=== PATIENT | female | born 1945 | race Caucasian/White ===

== ENCOUNTER 2024-09-14 06:08 | Day surgery (SDC) | payer MEDICARE, OTHER, SELFPAY ==
[2024-09-14 06:09] VITALS: BP 141/71; PULSE 67; RESP 16; TEMP 36; O2SAT 99
[2024-09-14] MEDS: Tropicam./Phenyleph. (1/2.5%) 5 ML BTL OS ×3 (06:25→06:35)
--- NOTE | 2024-09-14 07:12 | W.ANESPRE ---
General Info Date of Service Date Performed: 09/14/24 Height: 5 ft 2 in Weight: 83.915 kg Body Mass Index (BMI): 33.8 Surgical Procedure: Operation Date: 09/14/24 07:40 Proposed Procedure Side Surgeon p Cataract Extraction with IOL Implant Left Willie Burks MD Meds Allergies and Home Medications Allergies Allergy/AdvReac Type Severity Reaction Status Date / Time niacin Allergy Other (See Verified 09/14/24 06:26 Comment) suture Allergy Other (See Verified 09/14/24 06:26 Comment) Home Medication ?Medication ?Instructions ?Recorded Manan Low Dose Aspirin 81 mg 81 mg PO DAILY 04/18/17 tablet,delayed release (aspirin) Nitrostat 0.4 mg sublingual tablet 0.4 mg sublingual DIRECTED 04/18/17 (nitroglycerin) Tylenol Extra Strength 500 mg 1,000 mg PO Q6H PRN 04/18/17 tablet (acetaminophen) hydrochlorothiazide 12.5 mg capsule 12.5 mg PO DAILY 04/18/17 levothyroxine 88 mcg tablet 88 mcg PO DAILY 04/18/17 lisinopril 40 mg tablet 40 mg PO DAILY 04/18/17 atorvastatin 80 mg tablet 80 mg PO DAILY 09/11/24 cholecalciferol (vitamin D3) 25 1,000 unit PO DAILY 09/11/24 mcg (1,000 unit) tablet (Vitamin D3) multivitamin 1 tab PO DAILY 09/11/24 Current Visit Medications: Current Medications Generic Name Dose Route Start Last Admin Trade Name Freq PRN Reason Stop Dose Admin Acetaminophen 1,000 mg 09/14/24 06:00 Acetaminophen 500 Mg Tab PO 10/14/24 05:59 Q4H PRN PRN Balanced Salt Solution 500 ml 09/14/24 06:00 Balanced Salt Soln.-Plus 500 Ml Bag OP 10/14/24 05:59 DIRECTED EVELYN Miscellaneous Medication 0 ml 09/14/24 06:00 Prednisolone 1%, Moxifloxacin 0.5%, Bromfenac 0.09% 5.6ml Btl OS 10/14/24 05:59 DIRECTED EVELYN Miscellaneous Medication 0 ml 09/14/24 06:00 09/14/24 06:35 Tropicam./Phenyleph. (1/2.5%) 5 Ml Btl OS 10/14/24 05:59 1 drp DIRECTED EVELYN Administration Tetracaine HCl 0 ml 09/14/24 06:00 Tetracaine 0.5% 4 Ml Btl OS 10/14/24 05:59 DIRECTED EVELYN PFSH Active Problems Active Problems: Problem Status Onset Code Posterior subcapsular age-related cataract of left eye Acute H25.042 Nuclear age-related cataract, left eye Acute H25.12 Medical History Medical History Osteopenia Spondyloschisis Hypertension Hypothyroidism Hypercholesterolemia Elevated LFTs Tubulovillous adenoma Papillary carcinoma Persistent headaches Surgical History Surgical History Fibroid, uterine uterine fibroidectomy History of bilateral tubal ligation S/P YONY (total abdominal hysterectomy) History of laminectomy L4-5, L5-S1 and medial facetectomies 2014 History of bunionectomy right foot History of biopsy tongue-hyperplasia, Labia- atypical nevus, History of colonoscopy History of endoscopy H/O thyroidectomy Excision, Lipoma Tobacco Smoking/Tobacco Use Status: Former Tobacco Use Alcohol Alcohol Intake: never Substance Use Substance use: Never Substance use type: does not use Vital Signs and Lab Results Vital Signs Most Recent Vital Signs in EMR: Most Recent Vital Signs Temp Pulse Resp BP Pulse Ox 36 C L 67 16 141/71 H 99 09/14/24 06:09 09/14/24 06:09 09/14/24 06:09 09/14/24 06:09 09/14/24 06:09 Lab Results Blood Type / Crossmatch: No Data to Display Complete Blood Count: No Data to Display Complete Metabolic Panel: No Data to Display Liver Function Panel: No Data to Display Coagulation Panel: No Data to Display Cardiac Panel: No Data to Display Arterial Blood Gas: No Data to Display Venous Blood Gas: No Data to Display Pancreas Panel: No Data to Display Thyroid Panel: No Data to Display Infectious Disease: No Data to Display Blood Cultures: No Data to Display Toxicology Panel: No Data to Display Anesthesia Assessment and Plan Anesthesia History Personal History: No History of Anesthesia Complications Family History: No Family History of Anesthesia Complications Exercise Tolerance Exercise Tolerance: Metabolic Equivalents>4 Pertinent Negatives Pertinent Negatives: No Symptoms of GERD Cardiac & Pulmonary Exam Cardiac Exam: Normal S1/S2 Heart Sounds Pulmonary Exam: Clear Bilateral Breath Sounds Implantable Cardiac Device Does patient have a Pacemaker or an ICD?: No Airway Exam Known Difficult Airway: No Mallampati Class: 2 Mouth Opening: Normal (> 3cm) Thyromental Distance: Greater than 3 cm Neck Range of Motion: Full ROM Neck Circumference: Normal Teeth Condition: Normal Dentition ASA Classification ASA Score: ASA 2 Emergency Case?: No NPO Status NPO Status: NPO Clears >2 hours, Solids >8 hours Anesthesia Plan Resuscitation Status: Full Code Anesthesia Technique: MAC Anesthesia Airway Planned: Natural Airway Monitors Used: Standard Monitors
[2024-09-14 07:14] VITALS: BMI 33.8
[2024-09-14] MEDS: Lidocaine 1% Pres-Free 5 ML VIAL (07:35)
[2024-09-14] MEDS: Phenylephrine/Lidocaine (15/10) MG/ML 1 ML VIAL (07:36)
[2024-09-14] MEDS: Povidone-Iodine Ophth 30 ML BTL (07:37)
[2024-09-14] MEDS: Duovisc Viscoelastic System EACH 1 EACH (07:37)
[2024-09-14] MEDS: Balanced Salt Soln.-PLUS 500 ML BAG OP (07:38)
[2024-09-14] MEDS: Prednisolone 1%, Moxifloxacin 0.5%, Bromfenac 0.09% 5.6ML BTL OS (07:38)
[2024-09-14] MEDS: Tetracaine 0.5% 4 ML BTL OS (07:39)
--- NOTE | 2024-09-14 07:57 | W.PM.DSUDISC ---
Date of service: 09/14/24 Discharge Plan Disposition Patient Disposition: Home Discharge Details Attending Provider: Willie Burks Primary Care Provider: Leigh Stern Home Meds and New Rx's Prescriptions: No Action aspirin [Manan Low Dose Aspirin] 81 MG tablet,delayed release (DR/EC) 81 mg PO DAILY acetaminophen [Tylenol Extra Strength] 500 MG tablet 1,000 mg PO Q6H PRN levothyroxine 88 MCG tablet 88 mcg PO DAILY hydrochlorothiazide 12.5 MG capsule 12.5 mg PO DAILY nitroglycerin [Nitrostat] 0.4 MG tablet, sublingual 0.4 mg Sublingual DIRECTED lisinopril 40 MG tablet 40 mg PO DAILY atorvastatin 80 mg tablet 80 mg PO DAILY cholecalciferol (vitamin D3) [Vitamin D3] 25 mcg (1,000 unit) tablet 1,000 unit PO DAILY multivitamin Tablet 1 tab PO DAILY Discharge Instructions Stand Alone Forms: DSU Post-Op Cataract, Giuliano Gonzalez (DSU) Discharge Orders Discharge Orders: Discharge Order (Routine); Ordered 09/14/24 Ordered By: Willie Burks DS: Diagnosis Discharge Diagnosis (1) Posterior subcapsular age-related cataract of left eye: Status: Resolved (2) Nuclear age-related cataract, left eye: Status: Resolved
--- NOTE | 2024-09-14 07:58 | ROE_ITS ---
Operative Note Operative Note PRE-OP DIAGNOSIS: Nuclear/posterior subcapsular cataract, left eye POST-OP DIAGNOSIS: same PROCEDURE: Cataract extraction using phacoemulsification with intraocular lens implant, left eye SURGEON: Willie Burks ANESTHESIA TYPE: Local By Surgeon and MAC Refer to Anesthesia Record PATHOLOGY: none sent COMPLICATIONS: None Patient was transported to: same day Patient's condition: stable Implants: Norberto Clareon [id number] Indications: Progressive decreased vision due to cataract, left eye Procedure Description: CATARACT SURGERY OPERATIVE REPORT PREOPERATIVE DIAGNOSIS: Nuclear/posterior subcapsular cataract, left eye POSTOPERATIVE DIAGNOSIS: Same OPERATION: Cataract extraction using phacoemulsification with posterior chamber intraocular lens implant, left eye. IOL: IOL Coarse Wire Drawer/Model: Norberto Clareon [id number] IOL Power: + 17.0 diopters IOL Serial Number: [id number] Optic Diameter: 6.0mm Haptic/Overall Diameter: 13.0mm PHACO INFO: Norberto Centurion Vision System with OZil and Active Fluidics Cumulative Dispersed Energy (CDE): 4.39 seconds SURGEON: Willie Burks MD, MALICK ANESTHESIA: Monitored Anesthesia Care (MAC), with local sub-tenon's anesthetic infiltration COMPLICATIONS: None SPECIMENS: None INDICATIONS FOR PROCEDURE: The patient is a 79-year-old lady with history of diminished visual acuity in her left eye secondary to the development of nuclear/posterior subcapsular cataract. She is significantly symptomatic that she desires cataract surgery in attempt to improve and maximize her vision. See office notes for detailed information. PROCEDURE: The correct surgical eye was identified and marked as the left eye and the pupil was dilated in the preoperative area using mydriatics and cycloplegics. The dilated pupil size was 7.0 mm. The patient elected to proceed without oral sedation. The patient was brought to the operating room where cardiopulmonary monitoring was instituted and surgical time-out was performed, confirming the correct operative eye and IOL power. Topical anesthesia was administered and ophthalmic povidone-iodine 5% was instilled into the conjunctival fornices. The carolyn-ocular area was prepped with Betadine 10% solution and draped in the usual sterile fashion for intraocular surgery, including an aperture drape. A Tegaderm transparent film dressing was cut in half and used to cover the lashes and lid margins. Care was taken to sequester the lashes and lid margins under the Tegaderm dressing. A lid speculum was placed between the lids of the operative eye and the Norberto LuxOR Revalia operating microscope was maneuvered into position. Jamilah scissors were then used to make a conjunctival buttonhole approximately 6mm posterior to the limbus in the inferonasal quadrant. Blunt dissection was carried out to expose bare sclera, and a blunt-tipped sub-tenon?s anesthesia cannula was introduced and passed posteriorly along the globe where non- preserved plain lidocaine was injected into posterior sub-Tenon?s space. A sideport knife was used to make a paracentesis port. Intraocular phenylephrine/lidocaine was injected into the anterior chamber. The anterior chamber was then filled with viscoelastic. A keratome knife was used construct a two-plane clear corneal tunnel extending 2.0mm into clear cornea. A flap was raised on the anterior capsule and capsulorhexis forceps were used to complete a continuous curvilinear capsulorhexis of 5.0 mm. Balanced salt solution was then used to perform cortical cleaving hydrodissection and nuclear hydrodelineation until the lens could be freely rotated within the capsular bag. The lens nucleus was then disassembled and removed within the capsular bag and iris plane using phacoemulsification. Residual cortical material was removed using the irrigation/aspiration handpiece. The posterior capsule was carefully polished to remove as much residual lens epithelial cells as safely possible. The capsular bag was then inflated and the anterior chamber deepened with viscoelastic. The lens implant described above was inserted into the capsular bag using the Norberto Autonome Injector. A Kuglen hook was used to dial the IOL into position. Residual viscoelastic was then removed first from posterior to the IOL, then from the anterior chamber using the I/A handpiece. The lens implant was noted to center nicely within the capsular bag. The incisions were stromally hydrated, and the anterior chamber was reformed using BSS. Then 0.5cc of moxifloxacin 1.0mg/ml were injected into the capsular bag and anterior chamber. The incisions were checked with a Weck spear and found to be secure. Several drops of ophthalmic povidone-iodine 5% were then applied to the eye followed by two drops of combination steroid/NSAID/antibiotic solution. The drapes were removed and a clear plastic protective eye shield was placed over the eye. The patient was then returned to Same Day Surgery in stable condition. Date of Procedure: 09/14/24
[2024-09-14 08:00] VITALS: BP 152/68; PULSE 63; RESP 18; TEMP 36.6; O2SAT 97
--- NOTE | 2024-09-14 08:06 | W.ANESPOSTOP ---
Postoperative Evaluation Date, Time and Location Date Performed: 09/14/24 Time Performed: 08:06 Patient Location: Day Surgery Unit Vital Signs Most Recent Imported Vital Signs: Most Recent Vital Signs Temp Pulse Resp BP Pulse Ox 36 C L 67 16 141/71 H 99 09/14/24 06:09 09/14/24 06:09 09/14/24 06:09 09/14/24 06:09 09/14/24 06:09 Pain Score Most Recent Pain Score: Most Recent Pain Score Pain Level 0 09/14/24 06:09 Assessment Mental Status: Awake (Alert & Oriented to Patient Baseline) Airway and Respiratory Function: Patent airway with normal (patient baseline) respiratory exam Cardiovascular Function: Hemodynamically Stable Hydration Status: Adequately Hydrated Nausea & Vomiting: No Nausea or Vomiting Pain: Pt. Denies Any Pain Peripheral Nerve Block: Patient did not receive a nerve block
== END 2024-09-14 08:25 | disposition home or self-care (01) ==
LOC: SUR 06:08
PROVIDERS: PCP Nurse Practitioner; Visit Provider Ophthalmology
PROC: (CPT 66984; principal; 2024-09-14 07:30)
DX: H25.12 Age-related nuclear cataract, left eye (principal); H25.042 Posterior subcapsular polar age-related cataract, left eye
CPT/HCPCS: 66984; 00123; V2632; J2003

== ENCOUNTER 2024-09-21 06:37 | Day surgery (SDC) | payer MEDICARE, SELFPAY ==
--- OUTSIDE RECORDS SUMMARY | 2024-09-21 06:39 | XMS_ITS | Encounter Summary ---
Author Organization [facility] Address [address] [place] [id number] Care Team Providers Care Still Operator Gin Name Role Phone Pham Crocker MD Primary Care Provider [phone] Encounter Details Date Type Department Care Team (Late st Contact Info) Description 11/02/2011 Results Only [facility] Services - [facility] ([address] [phone] Willie Knox MD Social History Tobacco Use Types Packs/Day Years Used Date Smoking Tobacco: Never Assessed Comments Unknown Sex and Gender Information Value Date Recorded Sex Assigned at Not on file Legal Sex Female 18:39 EST Gender Identity Not on file Sexual Orientation Not on file documented as of this encounter Plan of Treatment Not on file documented as of this encounter Procedures Procedure Name Priority Date/Time Associated Diagnosis Comments SURGICAL PATHOLOGY Routine 11/02/2011 0:00 EST documented in this encounter Results * SURGICAL PATHOLOGY (11/02/2011 0:00 EST) Pathology Report: SURGICAL PATHOLOGY REPORT Reports generated via electronic interface contain original data; however they are lacking the format of the original report. Caution should be taken when reading/interpreti ng unformatted reports. Name: ? YESSY ROJAS ? Accession #: ? [id number] ? : ? 1945 (Age: 66) ??F ? Collect Date: ? 11/02/2011 ? Location: ? [facility] ? Receive Date: ? 11/03/2011 ? Provider: WILLIE KNOX MD Copy to: ? Final Pathologic Diagnosis: ? Tongue, left, biopsy: 1. ?Hyperplastic squamous mucosa overlying an organizing hematoma. 2. ? Negative for dysplasia. Document reviewed and electronically signed by: [facility] Report ??Date: 11/05/2011 11:22 By the signature above, the attending physician certifies that he/she has personally conducted a gross and/or microscopic examination of the described specimens and rendered or confirmed the above diagnosis. Specimen(s) Received: ? L tongue Clinical History: ? Non-smoker, new firm lesion Gross Description: ? Received in formalin labelled Yessy Rojas is a 0.5 x 0.5 x 0.3 cm portion of granular, light machado tissue. ??The resection margin is inked black and the specimen is bisected and submitted entirely in one cassette. ??(Jackie Lake/[facility] End of Report YOSEF ALFORD 11/02/2011 11/03/2011 16: 18 EST us Willie Knox MD PATHOLOGY ORDERABLES Lisa worley Result YOSEF ALFORD [address] [place] [address] documented in this encounter Visit Diagnoses Not on filedocumented in this encounter Care Teams Still Operator Gin Relationship Specialty Start Date End Date Pham Crocker MD [address] [place] [id number] PCP - General 12/22/10 documented as of this encounter
--- OUTSIDE RECORDS SUMMARY | 2024-09-21 06:39 | XMS_ITS | Clinical Summary ---
Author Organization [facility] Address [address] [facility] [place] [address] Care Team Providers Care Folding Machine Tender Name Role Phone Leigh Stern APRN Primary Care Provider [phone] Allergies Active Allergy Reactions Criticality Noted Date Comments Niacin Unclassified Drug 09/17/2013 Polyglycolic acid suture cause blisters. Medications Medication Sig Dispensed Refills Start Date End Date Status ACETAMINOPHEN/DP-HYDR AM HCL (TYLENOL PM ORAL) 12/23/2009 Active acetaminophen (TYLENOL EXTRA STRENGTH) 500 mg tablet 12/23/2009 Active aspirin (CRISTOBAL CHILDRENS ASPIRIN) 81 mg chewable tablet 12/23/2009 Active nitroGLYcerin (NITROSTAT) 0.4 mg SL tablet 12/23/2009 Active lisinopril (PRINIVIL;ZESTRIL) 40 mg tablet Take 40 mg by mouth daily. Active simvastatin (ZOCOR) 80 mg tablet Take 80 mg by mouth nightly. Active hydrochlorothiazide (HYDRODIURIL) 25 mg tablet Take 12.5 mg by mouth daily. 08/17/2013 Active multivitamin with minerals (THERA-M) 9-0.4 mg Tablet Take 1 tablet by mouth daily. Active levothyroxine (SYNTHROID) 88 mcg Tablet Take 1 tablet by mouth daily. 90 tablet 4 09/18/2015 Active calcium-vitamin D 500 mg(1,250mg) -200 unit Tablet Take 1 tablet by mouth 2 times daily (with meals). Active Immunizations Name Administration Dates Next Due Influenza Vaccine, Whole 07/17/2010 Social History Tobacco Use Types Packs/Day Years Used Date Smoking Tobacco: Former Cigarettes Q uit: 01/04/1981 Smokeless Tobacco: Never Alcohol Use Standard Drinks/Week Comments Not Asked 0 (1 standard drink = 0.6 oz pur e alcohol) Sex and Gender Information Value Date Recorded Sex Assigned at Not on file Gender Identity Not on file Sexual Orientation Not on file Last Filed Vital Signs Vital Sign Reading Time Taken Comments Blood Pressure 123/60 02/21/2019 1:31 PM EDT Pulse 55 02/21/2019 1:31 PM EDT Temperature 36.8 ??C (98.2 ??F) 02/21/2019 1:31 PM ED T Respiratory Rate 20 05/19/2011 11:41 AM EDT Oxygen Saturation 99% 02/21/2019 1:31 PM EDT Inhaled Oxygen Concentration - - Weight 83.6 kg (184 lb 3.2 oz) 02/21/2019 1:31 P M EDT Height - - Body Mass Index - - Plan of Treatment Health Maintenance Due Date Last Done Comments Hepatitis C Screening 1963 Tetanus/Diphtheria/Pertussis Vaccines (1 - Tdap) 1965 Pneumoccocal Vaccine: 50+ (1 of 1 - PCV) 1996 Zoster vaccine (1 of 2) 1996 RSV Vaccine (1 - 1-dose 75+ series) 2021 Covid-19 Vaccine (1 - 2023-2 5 season) 2024 Influenza (Flu) vaccine (1 o f 1 - Influenza standard series) 04/29/2024 07/17/2010 Bone Density Scan 07/09/2037 07/09/2022 Breast Cancer screening Discontinued 07/09/20 22, 07/09/2022, 07/01/2021, Additional history exists Procedures Procedure Name Priority Date/Time Associated Diagnosis Comments DXA CENTRAL SPINE, HIP, AND/OR WHOLE BODY (GENERIC) Routine 07/09/2022 10:14 AM EST MAMMO SCREENING CAD AND JASON BILATERAL Routine 07/09/2022 9:49 AM EST from Last 3 Months or Most Recently Relevant to Health Maintenance Results * DXA Central Spine, Hip, and/or Whole Body (Generic) (07/09/2022 10:14 AM EST) PT CLASS O RAD ADMITDTTM RAD PT BILLY COSTELLO INFO [id number]^B RISTOL^LEILA NE RAD EXAM DESC XDXAC^DEXA SCAN AXIAL^RIS RAD Anatomical Region Laterality Modality C-spine, Hip N/A Radiographic Olena ging Impressions 07/09/2022 10:37 AM EST Osteopenia. No significant interval change in bone mineral density. FRAX ten-year fracture risk: Major osteoporotic fracture: 16%. Hip fracture: 3.1%. Thank you for letting us participate in the care of this patient. ??If you are a health care provider and have any questions regarding this report, please contact the number below. ??For patients who have questions please contact the health acute care physical therapist that requested your imaging first. ? Electronically signed by: Rajiv Price MD, [facility] ([phone]), at 07/09/2022 10:37 AM Narrative 07/09/2022 10:37 AM EST EXAMINATION: DEXA SCAN AXIAL CLINICAL HISTORY: menopause TECHNIQUE: Scans were acquired at the lumbar spine, left hip. COMPARISON: March 06, 2013 FINDINGS: Lowest T score at a diagnostic region of interest: T score: -1.2, BUTCH:Femoral neck, WHO diagnosis: Osteopenia Total hip: 3.2% decrease. Procedure Note Rajiv Price MD - 07/09/2022 EXAMINATION: DEXA SCAN AXIAL CLINICAL HISTORY: menopause TECHNIQUE: Scans were acquired at the lumbar spine, left hip. COMPARISON: March 06, 2013 FINDINGS: Lowest T score at a diagnostic region of interest: T score: -1.2, BUTCH:Femoral neck, WHO diagnosis: Osteopenia Total hip: 3.2% decrease. IMPRESSION Osteopenia. No significant interval change in bone mineral density. FRAX ten-year fracture risk: Major osteoporotic fracture: 16%. Hip fracture: 3.1%. Thank you for letting us participate in the care of this patient. If youare a health care provider and have any questions regarding this report,please contact the number below. For patients who have questions please contactthe health acute care physical therapist that requested your imaging first. Leigh Stern PROPOSAL REVIEW ANALYST IMG DEXA ORDERABL ES * Mammo Screening Cad and Jason Bilateral (07/09/2022 9:49 AM EST) PT CLASS O RAD ADMITDTTM RAD PT RAD INFO [id number]^BRISTO L^LEIGH RAD EXAM DESC MADDSCTO^BREAST SCREEN TOMOSYNTHESIS BI^RIS RAD Anatomical Region Laterality Modality Breast Bilateral Mammography Impressions 07/12/2022 10:15 AM EST BI-RADS ??category 1: negative- No mammographic evidence of malignancy. RECOMMENDATION: * ??Regular screening mammograms starting between age 40 and 50 reduces the risk of from breast cancer. * ??All screening tests have both risks and benefits. These risks and benefits should be assessed for each individual patient through discussion with their provider to determine their preferred breast cancer screening schedule. * ??Women should report any breast changes to a health care provider right away. * ??Some women, because of their family history, a genetic tendency, or other factors, should be screened with annual breast MRI as well as with mammograms. (The number of women who fall into this category is very small). Patients and health care providers should discuss the history of each patient to decide if earlier screening and/or breast MRI are appropriate. * ??Screening should continue as long as a woman is in good health and is expected to live 10 years or longer. * ??Screening mammography may not detect 10-15% of breast cancers. Thank you for letting us participate in the care of this patient. ??If you are a health care provider and have any questions regarding this report, please contact the number below. ??For patients who have questions please contact the health acute care physical therapist that requested your imaging first. ? Electronically signed by: Rajiv Price MD, [facility] ([phone]), at 07/12/2022 10:15 AM Narrative 07/12/2022 10:15 AM EST EXAMINATION: SCREEN MAMMO BL INCLUDES CAD, BREAST SCREEN TOMOSYNTHESIS BI CLINICAL HISTORY: mammo screening for malignant neoplasm of breast Family history of breast cancer: Mother, grandmother Reproductive history: Parous No personal history of breast cancer. COMPARISON: Previous mammograms were reviewed. TECHNIQUE: ??Bilateral MLO and CC digital mammograms were obtained and reviewed with CAD. ?? 2-D and 3-D tomosynthesis images were obtained. FINDINGS: There are no suspicious microcalcifications, masses, or areas of distortion. No changes compared to prior studies. Breast density: The breasts are extremely dense, which lowers the sensitivity of mammography. Procedure Note Rajiv Price MD - 07/12/2022 EXAMINATION: SCREEN MAMMO BL INCLUDES CAD, BREAST SCREEN TOMOSYNTHESISBI CLINICAL HISTORY: mammo screening for malignant neoplasm of breast Family history of breast cancer: Mother, grandmother Reproductive history: Parous No personal history of breast cancer. COMPARISON: Previous mammograms were reviewed. TECHNIQUE: Bilateral MLO and CC digital mammograms were obtained andreviewed with CAD. 2-D and 3-D tomosynthesis images were obtained. FINDINGS: There are no suspicious microcalcifications, masses, or areasof distortion. No changes compared to prior studies. Breast density: The breasts are extremely dense, which lowers thesensitivity of mammography. IMPRESSION BI-RADS category 1: negative- No mammographic evidence of malignancy. RECOMMENDATION: * Regular screening mammograms starting between age 40 and 50 reduces therisk of from breast cancer. * All screening tests have both risks and benefits. These risks andbenefits should be assessed for each individual patient through discussion withtheir provider to determine their preferred breast cancer screening schedule. * Women should report any breast changes to a health care provider rightaway. * Some women, because of their family history, a genetic tendency, orother factors, should be screened with annual breast MRI as well as withmammograms. (The number of women who fall into this category is very small). Patientsand health care providers should discuss the history of each patient to decideif earlier screening and/or breast MRI are appropriate. * Screening should continue as long as a woman is in good health and is expected to live 10 years or longer. * Screening mammography may not detect 10-15% of breast cancers. Thank you for letting us participate in the care of this patient. If youare a health care provider and have any questions regarding this report,please contact the number below. For patients who have questions please contactthe health acute care physical therapist that requested your imaging first. Leigh Stern APRN IMG MAMMO ORDERAB LES from Last 3 Months or Most Recently Relevant to Health Maintenance Advance Directives Documents on File Type Date Recorded Patient Trauma Doctor Expl anation Advance Directives and Livin g Will 10/28/2010 8:54 AM Care Teams Folding Machine Tender Relationship Specialty Start Date End Date Leigh Stern APRN [address] [place] [address] PCP - General Family Medicine 12/22/18
--- OUTSIDE RECORDS SUMMARY | 2024-09-21 06:39 | XMS_ITS | Encounter Summary ---
Author Organization [facility] [place] [address] Care Team Providers Care Traffic Law Attorney Name Role Phone Leigh Stern APRN Primary Care Provider [phone] Encounter Details Date Type Department Care Team (Late st Contact Info) Description 04/20/2007 Orders [place] [id number] Michael Mackay MD Social History Tobacco Use Types Packs/Day Years Used Date Smoking Tobacco: Never Assessed Sex and Gender Information Value Date Recorded Sex Assigned at Not on file Gender Identity Not on file Sexual Orientation Not on file documented as of this encounter Plan of Treatment Not on file documented as of this encounter Procedures Procedure Name Priority Date/Time Associated Diagnosis Comments SURGICAL PATHOLOGY REPORT Routine 04/20/2007 5:34 PM EDT documented in this encounter Results * Surgical Pathology Report (04/20/2007 5:34 PM EDT) Surgical Pathology Report [id number] ? Location: The signing pathologist has (i) examined the relevant preparation(s) for the specimen(s) and (ii) rendered or confirmed the diagnosis(es). . ?Pathology Surgical Pathology Final Report Clinical Information Specimen Submitted: A - Total thyroid: Neck Clinical Diagnosis: Papillary cancer. Gross Description Labeled/Fixative: ? Total thyroid, neck; fresh. Qty/Size/Weight: ?6.0 x 4.5 x 2.5 cm, 29 g. Tissue Description: ? Total thyroidectomy specimen. ?? External Surface: ?The left lobe is asymmetrically enlarged. ??The ?external surface is shaggy, machado-brown. ?? Parathyroid(s) ? Not identified. ?? Lesion: ?Location: ? Left lobe, upper to mid portion. ?Size: ? 3.0 x 3.0 x 2.7 cm, extending to the edges of the ?tissue. ?Contour/Capsule : ?Smooth and even. ?Description: ?The cut surfaces are glistening, mucoid, ?yellow-orange. ?? Additional lesion(s): ??There is an additional ?0.6-zi-uo-great est-dimension, calcified nodule of ?the left lower lobe extending to the lower ?isthmus. ?? Remaining parenchyma: ??Meaty, red-brown. Sections/Processi ng: ?(1-14) the primary lesion to include all of the ?edges; (15)- not submitted- block does not exist; (16-17) the left lower lobe into isthmus nodule; (18) two bilingual call center representative cross sections of the right lobe. ??The remainder of the tissue is submitted as follows: ??(19-28) the remaining left lobe tissue; (29-31) remaining isthmus; (32-38) the remaining right lobe. ??(T38) ?? aje/EJR Microscopic Description Slides reviewed, microscopic description not recorded. Diagnosis Specimen: ?Thyroid gland, total thyroidectomy. Histologic type: ? Papillary thyroid carcinoma, multifocal. ? 1 - 0.85 cm, left lobe (linear measure, A14). ? 2 - 0.20 cm, isthmus (A29). ? 3 - 0.10 cm, right lobe (A33). Extrathyroidal invasion: ? Not identified. Regional lymph nodes: ?N/A Vascular/lymphati c invasion: Vascular invasion is present (A14). Tumor Necrosis: ?Not identified. Nuclear pleomorphism: ?Mild. Mitotic Rate: ?Nil. TNM STAGING: ? pT1(m) NX MX (AJCC, 6th ed., 2003) Other: ? Multinodular hyperplasia with dominant 3.0-cm ? left lobe nodule. ??Focal scarring and ?dystrophic calification. ? Correlation with FNA, [id number]. . Diagnosis CR-0 04/24/07 CCB 04/25/07 Verified by: ? Shabana Fischer, DO ?Pathologist ?(Electronic Signature) The attending pathologist whose signature appears on this report has reviewed all diagnostic slides and has edited the gross and/or microscopic portion of the report in rendering the final pathologic diagnosis. TED ROSEN 04/20/2007 5:34 PM EDT Michael Mackay MD PATHOLOGY/CYTOLOGY ORDERABLES Performing Organization Address City/State/[facility] Co de Phone Number [facility] documented in this encounter Visit Diagnoses Not on filedocumented in this encounter Care Teams Traffic Law Attorney Relationship Specialty Start Date End Date Leigh Stern, AIRCRAFT DESIGN ENGINEER [address] [place] [address] PCP - General Family Medicine 12/22/18 documented as of this encounter
--- OUTSIDE RECORDS SUMMARY | 2024-09-21 06:39 | XMS_ITS | Encounter Summary ---
Author Organization [facility] [place] [address] Care Team Providers Care Supervisor Intermediates Name Role Phone Leigh Stern APRN Primary Care Provider [phone] Reason for Visit * Reason Comments Establish Care * Consultation (Routine) - Specialty Diagnoses / Procedures Referred By Contac t Referred To Contact Obstetrics and Gynecology Diagnoses VAGINAL MASS Leigh Stern APRN [address] [place] [address] [facility] Consultant [address] [place] [address] Referral ID Status Reason Start Date Expiration Date V isits Requested Visits Authorized [id number] Consult, Test & Treat [facility] 12/22/2018 12/22/2019 3 3 Encounter Details Date Type Department Care Team (Late st Contact Info) Description 02/21/2019 1:45 PM EDT Office Visit Obstetrics [place] [phone] Carol Tolentino MD [facility] [address] OBSTETRICS [place] [address] Vulvar mass Social History Tobacco Use Types Packs/Day Years [...] on file documented as of this encounter Last Filed Vital Signs Vital Sign Reading Time Taken Comments Blood Pressure 123/60 02/21/2019 1:31 PM EDT Pulse 55 02/21/2019 1:31 PM EDT Temperature 36.8 ??C (98.2 ??F) 02/21/2019 1:31 PM ED T Respiratory Rate - - Oxygen Saturation 99% 02/21/2019 1:31 PM EDT Inhaled Oxygen Concentration - - Weight 83.6 kg (184 lb 3.2 oz) 02/21/2019 1:31 P M EDT Height - - Body Mass Index - - documented in this encounter Progress Notes * Carol Tolentino MD - 02/21/2019 1:45 PM EDT Referred Leigh Stern APRN for vaginal lump found on her last exam. She has noticed it herself for a few months --feels like a pea, not painful or itchy. When it started she said area was swollen;then regressed bu still had the nontender lump. No other sx. SHe is s/p TAHBSO for fibroids many years ago. No h/o abnl Paps. No bleeding. Thinks she went through menopause about 20 years ago. She describes her health as excellent. She had a lipoma removed from her back a couple weeks ago. She has also had thyroidectomy and a rotator cuff repair.. PMH includes HTN, hypothyroid, high cholesterol On exam, she has a small, firm nodule palpable below the skin -- too deep to visalize at all. It isnontender and not fixed. Adjacent, she has a hymenal remant/skin tage which is about 1 cm --this isnotender as well. Feels like a benign subcutaneous cyst, but too deep for me to comfortably excise in clinic. She is anxoius as her of cancer. I told her I will consult with a couple colleagues about the best approch. She will let me know if it chnages in any way. documented in this encounter Plan of Treatment Not on file documented as of this encounter Visit Diagnoses Diagnosis Vulvar mass Other specified symptom associated with female genital organs documented in this encounter Care Teams Supervisor Intermediates Relationship Specialty Start Date End Date Leigh Stern APRN [address] [place] [address] PCP - General Family Medicine 12/22/18 documented as of this encounter
--- OUTSIDE RECORDS SUMMARY | 2024-09-21 06:39 | XMS_ITS | Referral Summary ---
Author Organization [facility] Address [address] [place] [address] Care Team Providers Care Mercury Purifier Name Role Phone Pham Crocker MD Primary Care Provider [phone] Social History Tobacco Use Types Packs/Day Years Used Date Smoking Tobacco: Never Assessed Interpersonal Safety Answer Date Record ed Physically Hurt Never 03/30/2020 Verbally Threaten Not on file 03/30/2020 Comments Unknown Sex and Gender Information Value Date Recorded Sex Assigned at Not on file Legal Sex Female 18:39 EST Gender Identity Not on file Sexual Orientation Not on file Plan of Treatment Not on file Care Teams Mercury Purifier Relationship Specialty Start Date End Date Pham Crocker MD [address] [place] [address] PCP - General 12/22/10
--- OUTSIDE RECORDS SUMMARY | 2024-09-21 06:39 | XMS_ITS | Encounter Summary ---
Author Organization [facility] Address [facility] [place] [address] Care Team Providers Care Neurourologist Name Role Phone Pham Crocker MD Primary Care Provider [phone] Reason for Visit * Reason Comments Medication Refill Encounter Details Date Type Department Care Team (Late st Contact Info) Description 02/05/2013 [place] [address] Bossman Bullard MD [facility] [place] [address] Hypothyroid (Primary Dx) Social History Tobacco Use Types Packs/Day Years Used Date Smoking Tobacco: Former Cigarettes Q uit: 01/04/1981 Alcohol Use Standard Drinks/Week Comments Not Asked 0 (1 standard drink = 0.6 oz pur e alcohol) Sex and Gender Information Value Date Recorded Sex Assigned at Not on file Gender Identity Not on file Sexual Orientation Not on file documented as of this encounter Plan of Treatment Not on file documented as of this encounter Visit Diagnoses Diagnosis Hypothyroid- Primary Unspecified hypothyroidism documented in this encounter Care Teams Neurourologist Relationship Specialty Start Date End Date Pham Crocker MD PCP - General 07/21/10 12/21/18 documented as of this encounter
--- OUTSIDE RECORDS SUMMARY | 2024-09-21 06:39 | XMS_ITS | Encounter Summary ---
Author Organization [facility] Address [facility] [place] [address] Care Team Providers Care Merchandising Specialist Name Role Phone Pham Crocker MD Primary Care Provider [phone] Reason for Visit * Reason Onset Date Comments Labs Only 12/11/2010 Encounter Details Date Type Department Care Team (Late st Contact Info) Description 12/11/2010 Telephone [place] [phone] Bossman Bullard MD [facility] [place] [address] Labs Only Social History Tobacco Use Types Packs/Day Years Used Date Smoking Tobacco: Never Assessed Sex and Gender Information Value Date Recorded Sex Assigned at Not on file Gender Identity Not on file Sexual Orientation Not on file documented as of this encounter Plan of Treatment Not on file documented as of this encounter Results * (ABNORMAL) TSH (01/04/2011 7:05 AM EDT) Thyroid Stimulating Hormone 0.01(L) 0.27 - 4.20 mcIU/mL TED ROSEN Blood specimen (specimen) 01/04/2011 7:05 AM EDT 01/04/2011 7:11 AM EDT Bossman Bullard MD CHEMISTRY ORDERABLES [place] * Thyroglobulin (01/04/2011 7:05 AM EDT) Thyroglobulin <0.4 <=54.9 ng/mL [facility] Comment: Interpret with caution. Tg levels may be unreliable and falsely low in TgAb positive samples (TgAb <20 is consistent with TgAb negativity). Serial TgAb measurements may be valuable as a surrogate tumor marker test and should be considered (Dom PARKINSON and Nash PAREDES Thyroid 2003;13:1-126) A clinical cutoff of <2.0 ng/ml should be used for athyrotic individuals. Pediatric reference ranges have not been established. Serum Tg measurements on T4 hormone suppression protocol are less sensitive for detecting residual thyroid tissue and metastatic disease compared to those made on TSH stimulation protocol. Thus a low serum Tg (<5.0 ng/ml) or an undetectable Tg level on T4 hormone suppression therapy does not exclude recurrent or metastatic disease. (Jeffery CARY et al. AACE Clinical Practice Guidelines for the Management of Thyroid Carcinoma. Endocrine Practice 1997;3:60-71). Tg levels after rhTSH administration may be lower than those obtained with T4 withdrawal protocol (Damariscotta BR et al. J Clin Endo Metab 1999;84:9622-8740). Assay performed using the DPC Immulite Tg immunometric assay. (lowest detection limit is <0.4 ng/ml). Thyroglob Ab <20.0 0.0 - 40.0 IU/mL [facility] [employer] Comment: Assay performed is the DPC Immulite Tg-Ab immunometric assay. (Cutoff for TgAb negativity is <20 IU/ml) Blood specimen (specimen) 01/04/2011 7:05 AM EDT 01/04/2011 11:54 AM EDT Bossman Bullard MD LAB SEND OUT ORDERAB LES [facility] documented in this encounter Visit Diagnoses Diagnosis Hypothyroid- Primary Unspecified hypothyroidism documented in this encounter Care Teams Merchandising Specialist Relationship Specialty Start Date End Date Pham Crocker MD PCP - General 07/21/10 12/21/18 documented as of this encounter
--- OUTSIDE RECORDS SUMMARY | 2024-09-21 06:39 | XMS_ITS | Encounter Summary ---
Author Organization [facility] [place] [address] Care Team Providers Care Herpetology Teacher Name Role Phone Leigh Stern APRN Primary Care Provider [phone] Encounter Details Date Type Department Care Team (Late st Contact Info) Description 07/09/2022 Interpretation Only [address] [address] Leigh Stern APRN [address] [place], [place] [id number] Social History Tobacco Use Types Packs/Day Years [...] Procedure Name Priority Date/Time Associated Diagnosis Comments MAMMO SCREENING CAD AND JASON BILATERAL Routine 07/09/2022 9:49 AM EST documented in this encounter Results * Mammo Screening Cad and Jason Bilateral (07/09/2022 9:49 AM EST) PT CLASS O DH RAD ADMITDTTM DH RAD PT RAD INFO [id number]^BRISTO L^LEIGH RAD EXAM DESC MADDSCTO^BREAST SCREEN TOMOSYNTHESIS [...] who have questions please contact the health director of critical care that requested your imaging first. ? Narrative 07/12/2022 10:15 AM EST EXAMINATION: SCREEN [...] patients who have questions please contactthe health director of critical care that requested your imaging first. Leigh Stern APRN IMG MAMMO ORDERAB LES documented in this encounter Visit Diagnoses Not on filedocumented in this encounter Care Teams Herpetology Teacher Relationship Specialty Start Date End Date Leigh Stern APRN [address] [place] [address] PCP - General Family Medicine 12/22/18 documented as of this encounter
--- OUTSIDE RECORDS SUMMARY | 2024-09-21 06:39 | XMS_ITS | Encounter Summary ---
Author Organization [facility] Address [facility] [place] [address] Care Team Providers Care Mallet Cutter Name Role Phone Pham Crocker MD Primary Care Provider [phone] Encounter Details Date Type Department Care Team (Late st Contact Info) Description 04/25/2015 External Results [place] [address] Bossman Bullard MD [facility] [place] [address] Social History Tobacco Use Types Packs/Day Years [...] Procedure Name Priority Date/Time Associated Diagnosis Comments EXTERNAL LAB CBC CMP THYROID RESULTS PANEL Routine 04/18/2015 documented in this encounter Results * (ABNORMAL) CBC / CMP / Thyroid External Results (04/18/2015) Free T4 1.4(Externa l Lab) 04/18/2015 Bossman Bullard MD EXTERNAL LAB ORDERAB LES documented in this encounter Visit Diagnoses Not on filedocumented in this encounter Care Teams Mallet Cutter Relationship Specialty Start Date End Date Pham Crocker MD PCP - General 07/21/10 12/21/18 documented as of this encounter
--- OUTSIDE RECORDS SUMMARY | 2024-09-21 06:39 | XMS_ITS | Encounter Summary ---
Author Organization [facility] Address [facility] [place] [address] Care Team Providers Care Press Tender Long Goods Name Role Phone Leigh Stern APRN Primary Care Provider [phone] Encounter Details Date Type Department Care Team (Late st Contact Info) Description 04/04/2014 Interpretation Only Radiology [address] [facility] [place] [address] Unknown None Social History Tobacco Use Types Packs/Day Years [...] Procedure Name Priority Date/Time Associated Diagnosis Comments XR FLUORO NO RAD <1HR - RADIOLOGY USE Routine 04/04/2014 6:40 AM EDT documented in this encounter Results * XR Fluoro <1Hr - Radiology Use (04/04/2014 6:40 AM EDT) Anatomical Region Laterality Modality N/A Radiographic Olena ging 04/04/2014 6:40 AM EDT Narrative 04/04/2014 6:40 AM EDT APD Historical Result Principal Trap Puller: ??ART ??ESCHBACH IMAGE INTENSIFIER FILMS: INDICATION: ??Left L4-5, L5/S1 medial facetectomy. FINDINGS: A total of 6.5 seconds of fluoro time is utilized by Marely Lucia MD. ??Estimated dose is 498.21 mrad. ??Two image intensifier films recorded the event. ??They show the lumbosacral junction in the lateral projection with the 1st shows a surgical instrument at the level of the L5/S1 interspace. ??The 2nd shows an instrument at the level of L5 pedicle. ??No Radiologist was present for this exam. Art Phan DO JOSE/mn [id number] CC: Procedure Note Unknown - 02/26/2019 APD Historical Result Principal Trap Puller: ART PHAN IMAGE INTENSIFIER FILMS: INDICATION: Left L4-5, L5/S1 medial facetectomy. FINDINGS: A total of 6.5 seconds of fluoro time is utilized by Marely Lucia MD. Estimated dose is 498.21 mrad. Two image intensifier films recorded the event. They showthe lumbosacral junction in the lateral projection with the 1st shows a surgical instrument at the levelof the L5/S1 interspace. The 2nd shows an instrument at the level of L5 pedicle. NoRadiologist was present for this exam. Art Phan DO JOSE/aida [id number] CC: Unknown IMG FLUORO ORDERABLE S documented in this encounter Visit Diagnoses Not on filedocumented in this encounter Care Teams Press Tender Long Goods Relationship Specialty Start Date End Date Leigh Stern APRN [address] [place] [id number] PCP - General Family Medicine 12/22/18 documented as of this encounter
--- OUTSIDE RECORDS SUMMARY | 2024-09-21 06:39 | XMS_ITS ---
Author Organization [facility] Address [address], [place] [address] Care Team Providers Care Machine Puller Name Role Phone Pham Crocker Primary Care Provider Pham Crocker MD Unavailable Unavailable REASON FOR VISIT PRAPARE SF Social History Tobacco Use: Social History Observation Description Date Details (start date - stop date) Former Smoker NA - NA Sex Assigned At : Social History Observation Description Sex Assigned At Female PRAPARE Question Answer Notes Date Completed/Updated: 09/03/2024 What is your current housing situation? I have h ousing Are you worried about losing your housing? No What is the highest level of school that you have finished? High school diploma or GED What is your current work situation? Oth erwise unemployed but not seeking work (ex. student, retired, disabled, unpaid primary health care facility administrator) In the past year, have you o r any family members you live with been unable to get any of the following when it was really needed? Check all that apply I do not have problems meeting my needs Has lack of transportation k ept you from medical appointments, meetings, work or from getting things needed for daily living? No How often do you see or talk to people that you care about and feel close to? (For example: talking to friends on the phone, visiting friends or family, going to worship or club meetings) 3 to 5 times a week How stressed are you? Stress is when someone feels tense, nervous, anxious, or can't sleep at night because their mind is troubled A little bit In the past year have you sp ent more than 2 nights in a row in a intermediate, residential, chcf center, or juvenile correctional facility? No Are you a refugee? No What country are you from? [place] Do you feel physically and e motionally safe where you currently live? Yes In the past year, have you b een afraid of your partner or ex-partner? I have not had a partner in the past year PRAPARE Score: 3 Tobacco Control (Standard) Question Answer Notes Tobacco use: Former smoker Section Notes: Quit smoking >10 yrs ago Encounters Encounter Location Date Provider Diagnosis [address] [place] [address] 09/03/2024 Pham Crocker PRAPARE NEGATIVE PRA N Assessments Encounter Date Diagnosis (ICD Code) Assessment Notes Treatment Notes Treatment Clinical Notes Section Notes 09/03/2024 PRAPARE NEGATIVE (ICD9-CM - PRAN) Plan Of Treatment No Information Progress Notes * Bing ROJASOB: 6 (79 yo F)Acc No.[id number]:09/03/2024 Patient:?Bing ROJAS :1945???Age:79 Y???Sex:Female Address:[address] [address] Subjective: * Chief Complaints: * ???PRAPARE SF * Medical History:? * Surgical History:? * Hospitalization/Major Diagno stic Procedure:? * Social History:?TOBACCO USE:?Tobacco Control (Standard)?Tobacco use:?Former smoker ???Social Determinants:?PRAPARE?Date Completed/Updated:?09/03/2024 ?What is your current housing situation??I have housing ?Are you worried about losing your housing??No ?What is the highest level of school that you have finished??High school diploma or GED ?What is your current work situation??Otherwise unemployed but not seeking work (ex. student, retired, disabled, unpaid primary health care facility administrator) ?In the past year, have you or any family members you live with been unable to get any of the following when it was really needed? Check all that apply?I do not have problems meeting my needs ?Has lack of transportation kept you from medical appointments, meetings, work or from getting things needed for daily living??No ?How often do you see or talk to people that you care about and feel close to? (For example: talking to friends on the phone, visiting friends or family, going to worship or club meetings)?3 to 5 times a week ?How stressed are you? Stress is when someone feels tense, nervous, anxious, or can't sleep at night because their mind is troubled?A little bit ?In the past year have you spent more than 2 nights in a row in a intermediate, residential, chcf center, or juvenile correctional facility??No ?Are you a refugee??No ?What country are you from??[place] ?Do you feel physically and emotionally safe where you currently live??Yes ?In the past year, have you been afraid of your partner or ex-partner??I have not had a partner in the past year ?PRAPARE Score:?3 ???Quit smoking >10 yrs ago. * Medications:? Objective: * Vitals:? * Physical Examination:? Assessment: * Assessment: 1.?PRAPARE NEGATIVE - PRAN ( Primary)??? Plan: * Treatment: * Procedure Codes:?[facility] Care C oordinator Phone Consultation * true * Date:? Generated for Karyn villanueva/Zeyad/Brookesmemily on:?09/21/2024 06:39 AM EST
--- OUTSIDE RECORDS SUMMARY | 2024-09-21 06:39 | XMS_ITS | Encounter Summary ---
Author Organization [facility] Address [facility] [place] [address] Care Team Providers Care Risk Compliance Analyst Name Role Phone Pham Crocker MD Primary Care Provider [phone] Encounter Details Date Type Department Care Team (Late st Contact Info) Description 01/25/2012 Orders [place] [address] Bossman Bullard MD [facility] [place] [address] Thyroid cancer (Primary Dx) Social History Tobacco Use Types [...] documented as of this encounter Results * Thyroglobulin (01/25/2012 12:55 PM EDT) Thyroglobulin <0.4 <=54.9 ng/mL [facility] Comment: Interpret with caution. Tg levels may be unreliable and falsely low in TgAb positive samples (TgAb <20 is consistent with TgAb negativity). Serial TgAb measurements may be valuable as a surrogate tumor marker test and should be considered (Dom PARKINSON and Nash [place] Thyroid 2003;13:1-126) A clinical cutoff of <2.0 [...] than those obtained with T4 withdrawal protocol (Flaco BR et al. J Clin Endo Metab 1999;84:0190-7875). Assay performed using the DPC Immulite Tg immunometric assay. (lowest detection limit is <0.4 ng/ml). Thyroglob Ab <20.0 0.0 - 40.0 IU/mL CERNER MILLENNIUM Comment: Assay performed is the DPC Immulite Tg-Ab immunometric assay. (Cutoff for TgAb negativity is <20 IU/ml) Blood specimen (specimen) 01/25/2012 12:55 PM EDT 01/25/2012 2:30 PM EDT Narrative Resulting Agency Comment Spec In Lab Bossman Bullard MD LAB SEND OUT ORDERAB LES Performing Organization Address [facility] de Phone Number [employer] * (ABNORMAL) TSH (01/25/2012 12:55 PM EDT) Thyroid Stimulating Hormone 0.02(L) 0.27 - 4.20 mcIU/mL CERNER [employer] Blood specimen (specimen) 01/25/2012 12:55 PM EDT 01/25/2012 1:02 PM EDT Narrative Resulting Agency Comment Spec In Lab Bossman Bullard MD CHEMISTRY ORDERABLES Performing Organization Address [facility] de Phone Number [employer] documented in this encounter Visit Diagnoses Diagnosis Thyroid cancer- Primary Malignant neoplasm of thyroid gland documented in this encounter Care Teams Risk Compliance Analyst Relationship Specialty Start Date End Date Pham Crocker MD PCP - General 07/21/10 12/21/18 documented as of this encounter
--- OUTSIDE RECORDS SUMMARY | 2024-09-21 06:39 | XMS_ITS | Encounter Summary ---
Author Organization [facility] Address [address] [place] [address] Care Team Providers Care Finishing Area Operator Name Role Phone Unavailable Primary Care Provider Unavailabl e Encounter Details Date Type Department Care Team (Late st Contact Info) Description 08/24/2006 Results Only [facility] [address] [place] [address] Shin Hagan MD [address] [place], [place] [id number] Social History Tobacco Use Types Packs/Day Years [...] Date/Time Associated Diagnosis Comments SURGICAL PATHOLOGY Routine 08/24/2006 0:00 EST documented in this encounter Results * SURGICAL PATHOLOGY (08/24/2006 0:00 EST) Pathology Report: SURGICAL PATHOLOGY REPORT Reports generated via electronic interface contain original data; however they are lacking the format of the original report. Caution should be taken when reading/interpreti ng unformatted reports. Name: ? YESSY ROJAS ? Accession #: ? [id number] ? : ? 1945 (Age: 61) ??F ? Collect Date: ? 08/24/2006 ? Location: ? [facility] ? Receive Date: ? 08/25/2006 ? Provider: SHIN HAGAN MD Copy to: ELKE ANG MD ? Final Pathologic Diagnosis: A. ?Colon, hepatic flexure, polyp, biopsy: 1. ?Hyperplastic polyp (three pieces); no adenoma. B. ?Colon, splenic flexure, polyp, biopsy: 1. ?Tubulovillous adenoma (two pieces); no high grade dysplasia. C. ?Colon, at 38 cm, polyp, biopsy: 1. ?Hyperplastic polyp (one piece); no adenoma. Document reviewed and electronically signed by: Brandon Rodriguez MD Report ??Date: 08/26/2006 14:39 By the signature above, the attending physician certifies that he/she has personally conducted a gross and/or microscopic examination of the described specimens and rendered or confirmed the above diagnosis. Specimen(s) Received: A. ?Bx hepatic flexure polyp B. ? Bx splenic flexure polyp C. ? Bx 38 cm polyp Clinical History: ? Screening colonoscopy age criteria Gross Description: ? Received in Hollande's fixative labelled Bob and bx hepatic flexure polyp are three machado-pink irregular soft tissue fragments ranging from 0.2 x 0.2 x 0.2 cm to 0.4 x 0.2 x 0.2 cm. ??The specimen is entirely submitted as (A). Received in Hollande's fixative labelled [place] and bx splenic flexure polyp are two machado-pink irregular soft tissue fragments averaging 0.2 x 0.2 x 0.2 cm. The specimen is entirely submitted as (B). Received in Hollande's fixative labelled Bob and bx 38 cm polyp is a machado-pink 0.2 x 0.2 x 0.2 cm soft tissue fragment. ??The specimen is entirely submitted as (C). ??(Ivone Hester)/tmg End of Report YOSEF ALFORD 08/24/2006 08/25/2006 15: 36 EST us Shin Hagan MD PATHOLOGY ORDERABLES Final Resul t YOSEF ALFORD [address] [place] [address] documented in this encounter Visit Diagnoses Not on filedocumented in this encounter
--- OUTSIDE RECORDS SUMMARY | 2024-09-21 06:39 | XMS_ITS | Encounter Summary ---
Author Organization [facility] [place] [address] Care Team Providers Care Dye Machine Tender Name Role Phone Leigh Stern APRN Primary Care Provider [phone] Encounter Details Date Type Department Care Team (Late st Contact Info) Description 07/09/2022 Interpretation Only [address] [address] Leigh Stern APRN [address] [place], [place] [id number] Social History Tobacco Use Types Packs/Day Years [...] Date/Time Associated Diagnosis Comments MAMMO SCREENING CAD BILATERAL Routine 07/09/2022 9:49 AM EST documented in this encounter Results * Mammo Screening Cad Bilateral (07/09/2022 9:49 AM EST) PT CLASS O DH RAD ADMITDTTM DH RAD PT RAD INFO [id number]^BR ISTOL^LEIGH RAD EXAM DESC MADDSC^SCREEN MAMMO BL INCLUDES CAD^RIS RAD Anatomical Region Laterality Modality Breast Bilateral [...] who have questions please contact the health pediatric care coordinator that requested your imaging first. ? Narrative [...] patients who have questions please contactthe health pediatric care coordinator that requested your imaging first. Leigh Stern APRN IMG MAMMO ORDERAB LES documented in this encounter Visit Diagnoses Not on filedocumented in this encounter Care Teams Dye Machine Tender Relationship Specialty Start Date End Date Leigh Stern APRN [address] [place] [address] PCP - General Family Medicine 12/22/18 documented as of this encounter
--- OUTSIDE RECORDS SUMMARY | 2024-09-21 06:39 | XMS_ITS | Encounter Summary ---
Author Organization [facility] Address [facility] [place] [address] Care Team Providers Care Hospital Sales Representative Name Role Phone Pham Crocker MD Primary Care Provider [phone] Encounter Details Date Type Department Care Team (Late st Contact Info) Description 09/17/2013 8:00 AM EST Office [place] [phone] Bossman Bullard MD [facility] [place] [address] Thyroid cancer (Primary Dx) Discharge Disposition: Home Social History Tobacco Use Types Packs/Day Years [...] Sign Reading Time Taken Comments Blood Pressure 136/57 09/17/2013 9:02 AM EST Pulse 57 09/17/2013 9:02 AM EST Temperature - - Respiratory Rate - - Oxygen Saturation - - Inhaled Oxygen Concentration - - Weight 89.4 kg (197 lb 3.2 oz) 09/17/2013 9:02 A M EST Height - - Body Mass Index - - documented in this encounter Progress Notes * Bossman Bullard MD - 09/17/2013 9:29 AM EST Subjective: Patient ID: Bing Rojas is a 68 y.o. 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 She is currently on 100 mcg of levothyroxine. She has had no evidence of any recurrence in the past. Generally, feeling well at this point with no complaints. . HPI--Pathologic Diagnosis---2006 Specimen: Thyroid gland, total thyroidectomy. Histologic type: Papillary thyroid carcinoma, multifocal. 1 - 0.85 cm, left lobe (linear measure, A14). 2 - 0.20 cm, isthmus (A29). 3 - 0.10 cm, right lobe (A33). Extrathyroidal invasion: Not identified. Regional lymph nodes: N/A Vascular/lymphatic invasion: Vascular invasion is present (A14). Tumor Necrosis: Not identified. Nuclear pleomorphism: Mild. Mitotic Rate: Nil. TNM STAGING: pT1(m) NX MX (AJCC, 6th ed., 2003) Other: Multinodular hyperplasia with dominant 3.0-cm left lobe nodule. Focal scarring and dystrophic calcification. Correlation with FNA, [id number]. CR-0 Review of Systems Objective: Physical Exam Constitutional: She is oriented to person, place, and time. She appears well- developed and well-nourished. Neck: No thyromegaly present. Lymphadenopathy: She has no cervical adenopathy. Neurological: She is alert and oriented to person, place, and time. Psychiatric: She has a normal mood and affect. Her behavior is normal. Thought content normal. BP 136/57 Pulse 57 Wt 89.449 kg (197 lb 3.2 oz) Assessment and Plan: Recent Results (from the past 24 hour(s)) TSH Component Value Range TSH 0.05 (*) 0.27 - 4.20 mcIU/mL I told Bing Zhang that I suspect her thyroglobulin level would be undetectable. I suggested that she decrease her Levothyroxine to 88 mcg a day since now it has been over five years without any evidence of any recurrence of her papillary thyroid cancer and therefore I do not feel she needs to have a suppressed TSH. I will make an appointment to see her in two years. If at that time her thyroglobulin is undetectable, then we will not schedule her in the future for followup, but we will have her follow by her primary care physician for her hypothyroidism. Greater than 20 of the 25-minute appointment was spent in [id number] counseling concerning ongoing explanation of followup for her papillary thyroid cancer stage I. documented in this encounter Plan of Treatment Not on file documented as of this encounter Procedures Procedure Name Priority Date/Time Associated Diagnosis Comments THYROGLOBULIN Routine 09/17/2013 8:06 AM EST Thyroid cancer TSH Routine 09/17/2013 8:06 AM EST Thyroid cancer documented in this encounter Results * (ABNORMAL) TSH (09/17/2013 8:06 AM EST) Thyroid Stimulating Hormone 0.05(L) 0.27 - 4.20 mcIU/mL [facility] Blood specimen (specimen) 09/17/2013 8:06 AM EST 09/17/2013 8:10 AM EST Narrative Resulting Agency Comment Spec In Lab Bossman Bullard MD CHEMISTRY ORDERABLES [facility] * Thyroglobulin (09/17/2013 8:06 AM EST) Thyroglobulin <0.4 <=54.9 ng/mL [facility] Comment: Interpret with caution. Tg levels may be unreliable and falsely low in TgAb positive samples (TgAb <20 is consistent with TgAb negativity). Serial TgAb measurements may be valuable as a surrogate tumor marker test and should be considered (Dom LM and Nash [place] Thyroid 2003;13:1-126) A clinical [...] those obtained with T4 withdrawal protocol (Flaco JHAVERI et al. J Clin Endo Metab 1999;84:9126-1012). Assay performed using the DPC Immulite Tg immunometric assay. (lowest detection limit is <0.4 ng/ml). Thyroglob Ab <20.0 0.0 - 40.0 IU/mL AVINASHEDISON JOYAADRIAN Comment: Assay performed is the DPC Immulite Tg-Ab immunometric assay. (Cutoff for TgAb negativity is <20 IU/ml) Blood specimen (specimen) 09/17/2013 8:06 AM EST 09/17/2013 12:01 PM EST Narrative Resulting Agency Comment Spec In Lab Bossman Bullard MD LAB SEND OUT ORDERAB LES TED ROSEN documented in this encounter Visit Diagnoses Diagnosis Thyroid cancer- Primary Malignant neoplasm of thyroid gland documented in this encounter Care Teams Hospital Sales Representative Relationship Specialty Start Date End Date Pham Crocker MD PCP - General 07/21/10 12/21/18 documented as of this encounter
--- OUTSIDE RECORDS SUMMARY | 2024-09-21 06:39 | XMS_ITS | Encounter Summary ---
Author Organization [facility] Address [facility] [place] [address] Care Team Providers Care Drier Transfer Car Operator Name Role Phone Pham Crocker MD Primary Care Provider Reason for Visit * Reason Comments Medication Refill Encounter Details Date Type Department Care Team (Late st Contact Info) Description 09/20/2014 Refill [place] [address] Bossman Bullard MD [facility] [place] [address] Social History Tobacco Use Types Packs/Day Years [...] documented as of this encounter Visit Diagnoses Not on filedocumented in this encounter Care Teams Drier Transfer Car Operator Relationship Specialty Start Date End Date Pham Crocker MD PCP - General 07/21/10 12/21/18 documented as of this encounter
--- OUTSIDE RECORDS SUMMARY | 2024-09-21 06:39 | XMS_ITS | Encounter Summary ---
Author Organization [facility] [place] [address] Care Team Providers Care Modeling Analyst Name Role Phone Pham Crocker MD Primary Care Provider [phone] Reason for Visit * Reason Comments Back Pain Encounter Details Date Type Department Care Team (Late st Contact Info) Description 05/19/2011 10:08 AM EDT - 05/19/2011 11:42 AM EDT [place] [address] Bossman Escobar PA [facility] [place] [address] Quinn Parker MD [facility] [place] [address] Back pain with radiation; Backache, unspecified Discharge Disposition: Home Social History Tobacco Use [...] Sign Reading Time Taken Comments Blood Pressure 168/52 05/19/2011 11:41 AM EDT Pulse 52 05/19/2011 11:41 AM EDT Temperature 36.8 ??C (98.2 ??F) 05/19/2011 10:15 AM E DT Respiratory Rate 20 05/19/2011 11:41 AM EDT Oxygen Saturation 97% 05/19/2011 11:41 AM EDT Inhaled Oxygen Concentration - - Weight 86.2 kg (190 lb) 05/19/2011 10:15 AM EDT Height - - Body Mass Index - - documented in this encounter Discharge Instructions * Discharge Instructions* Bossman Escobar PA - 05/19/2011 11:22 AM EDT May take one Tylenol regular strength with narcotic medication for pain. Heat to the back for 20 minutes 4 times a day. Spend most of her time either lying or walking avoid prolonged sitting. Followup with your primary care physician if not improved by next week * Attachments The following attachments cannot be sent through Care Everywhere. * BACK PAIN, EMERGENCY OR URGENT SYMPTOMS: AFTER YOUR VISIT ([place]) documented in this encounter Medications at Time of Discharge Medication Sig Dispensed Refills Start Date End Date ACETAMINOPHEN/DP-HYDRAM HCL (TYLENOL PM ORAL) 12/23/2009 acetaminophen (TYLENOL EXTRA STRENGTH) 500 mg tablet 12/23/2009 aspirin (CRISTOBAL CHILDRENS ASPIRIN) 81 mg chewable tablet 12/23/2009 nitroGLYcerin (NITROSTAT) 0.4 mg SL tablet 12/23/2009 hydroCODone-acetaminoph en (VICODIN) 5-500 mg per tablet Take 1 tablet by mouth every 4 hours as needed for Pain. No driving, no alcohol, no extra tylenol 20 tablet 0 05/19/2011 09/17/2013 CIS Free Text Med - Maalox 12/23/2009 09/17/2013 atenolol (TENORMIN) 50 mg tablet 12/23/2009 09/17/2013 lisinopril (PRINIVIL;ZESTRIL) 10 mg tablet 12/23/2009 09/17/2013 Cckvgzcxkrprj-Qy-Tvua-M inerals (ONE-A-DAY WOMENS FORMULA) 27-0.4 mg Tab 12/23/2009 02/21/2019 levothyroxine (SYNTHROID) 125 mcg tablet 12/23/2009 01/25/2012 Omeprazole 20 mg TbEC 12/23/20092013 atorvastatin (LIPITOR) 20 mg tablet 12/23/2009 09/17/2013 documented as of this encounter ED Notes * Bossman Escobar PA - 05/19/2011 11:22 AM EDT Images from the original note were not included. Chief Complaint Patient presents with ??? Back Pain Patient is a 66 y.o. female presenting with back pain. The history is provided by the patient. Back Pain This is a new problem. The current episode started more than 1 week ago. The problem occurs constantly. The problem has been gradually worsening. The pain is associated with no known injury. The painis present in the lumbar spine. The quality of the pain is described as shooting and aching. The pain radiates to the left thigh. The pain is moderate. The symptoms are aggravated by bending, twisting and certain positions. Pertinent negatives include no chest pain, no abdominal pain, no perianal numbness, no bladder incontinence, no tingling and no weakness. Allergies Allergen Reactions ??? Niacin Review of Systems Cardiovascular: Negative for chest pain. Gastrointestinal: Negative for abdominal pain. Genitourinary: Negative for bladder incontinence. Musculoskeletal: Positive for back pain. Neurological: Negative for tingling and weakness. Physical Exam Abdominal: Soft. Bowel sounds are normal. She exhibits no mass. No tenderness. She has no guarding. Musculoskeletal: Lumbar back: She exhibits decreased range of motion, tenderness and pain. She exhibits no swelling and no deformity. Back: Procedures MDM ED Course: Left-sided back pain with radiculopathy AVANI Wellington 05/19/11 1125 documented in this encounter Miscellaneous Notes * Discharge Summary - Provider, Scanning - 05/20/2011 9:28 AM EDT * Miscellaneous - Provider, Scanning - 05/19/2011 11:00 PM EDT * ED Triage - Vikram Montilla RN - 05/19/2011 10:17 AM EDT Pt with one week of progressively worse low back pain. No hx of trauma or specific precipitating event. Here with her who is receiving cancer treatments, unable to sit without signif pain. documented in this encounter Plan of Treatment Not on file documented as of this encounter Visit Diagnoses Diagnosis Back pain with radiation Backache, unspecified Backache, unspecified documented in this encounter Administered Medications Inactive Administered Medications - up to 3 most recent administrations Medication Order MAR Action Action Date Dose Rate Site acetaminophen (TYLENOL) tablet 325 mg 325 mg, Oral, ONCE, 1 dose, On Tue05/19/11 at 1145, Maximum dose of acetaminophen is 4000 mg from all sources in 24 hours., STAT Given 05/19/2011 11:45 AM EDT 325 mg hydroCODone-acetaminophen (VICODIN) 5-500 mg per tablet 1 tablet 1 tablet, Oral, ONCE, 1 dose, On Tue05/19/11 at 1145, Maximum dose of acetaminophen is 4000 mg from all sources in 24 hours., STAT Given 05/19/2011 11:45 AM EDT 1 tablet documented in this encounter Active and Recently Administered Medications Times are shown in EDT. Scheduled Medication Order 05/17/2011 05/18/2011 05/19/2011 acetaminophen (TYLENOL) tablet 325 mg (COMPLETED) 325 mg, Oral, ONCE, 1 dose, On Tue05/19/11 at 1145, Maximum dose of acetaminophen is 4000 mg from all sources in 24 hours., STAT 1145 (Given - Provid er: Everett Caceres RN) hydroCODone-acetaminophen (VICODIN) 5-500 mg per tablet 1 tablet (COMPLETED) 1 tablet, Oral, ONCE, 1 dose, On Tue05/19/11 at 1145, Maximum dose of acetaminophen is 4000 mg from all sources in 24 hours., STAT 1145 (Given - Provid er: Everett Caceres RN) documented in this encounter Care Teams Modeling Analyst Relationship Specialty Start Date End Date Pham Crocker MD PCP - General 07/21/10 12/21/18 documented as of this encounter
--- OUTSIDE RECORDS SUMMARY | 2024-09-21 06:39 | XMS_ITS | Encounter Summary ---
Author Organization [facility] Address [address] [place] [address] Care Team Providers Care Voice Over Announcer Name Role Phone Elke Ang MD Primary Care Provider [phone] Encounter Details Date Type Department Care Team (Late st Contact Info) Description 04/11/2012 Results Only [facility] Laboratory Services - [facility] ([facility] [address] [place] [address] [id number] Gumaro Velazquez MD [address] [place] [id number] Social History Tobacco Use Types Packs/Day Years [...] Date/Time Associated Diagnosis Comments SURGICAL PATHOLOGY Routine 04/11/2012 0:00 EDT documented in this encounter Results * SURGICAL PATHOLOGY (04/11/2012 0:00 EDT) Pathology Report: SURGICAL PATHOLOGY REPORT Reports generated via electronic interface contain original data; however they are lacking the format of the original report. Caution should be taken when reading/interpreting unformatted reports. Name: ? YESSY ROJAS ? Accession #: ? [id number] ? : ? 1945 (Age: 67) ??F ? Collect Date: ? 04/11/2012 ? Location: ? [facility] ? Receive Date: ? 04/11/2012 ? Provider: GUMARO VELAZQUEZ MD Copy to: ELKE ANG MD ? Final Pathologic Diagnosis: ? Soft tissue of dorsal back/lateral chest wall, left, excision: - Lipoma. ??See comment. Comment: ? Cheese Supervisor sections of this case were reviewed at the intradepartmental consultation conference. ??The specimen container indicates lateral chest wall, while the requisition indicates the specimen was from the lateral dorsal back. Correlation with the operative report with regard to the anatomic site is necessary. ??Sections feature mature adipose tissue and skeletal muscle. ??The findings are those of a lipoma with an intramuscular component. ??(Dr. Reyes)/linnette Document reviewed and electronically signed by: ADRASH REYES MD Report ??Date: 04/13/2012 14:59 By the signature above, the attending physician certifies that he/she has personally conducted a gross and/or microscopic examination of the described specimens and rendered or confirmed the above diagnosis. Specimen(s) Received: ? L lateral dorsal back Clinical History: ? Mass present greater than 4 yrs Gross Description: ? Received in formalin labelled Yessy Rojas and 1-lipoma left lateral chest wall is a spherical piece of fibrofatty tissue measuring 5.5 x 4.5 x 3.0 cm and weigh 31 grams. ??The specimen is unoriented. ??The surface is predominantly yellow-machado and lobular with focal areas of roughness that are machado-white. ??The specimen is inked black. ??Sectioning reveals a smooth homogenous yellow cut surface. ??No discrete nodules or areas of hemorrhage are identified. Cheese Supervisor sections are submitted as (A1)-(A3). ??(Dr. Ni)/[facility] End of Report [facility] 04/11/2012 04/11/2012 16: 16 EDT us Gumaro Velazquez MD PATHOLOGY ORDERABLES Final Result [facility] [address] [place] [address] documented in this encounter Visit Diagnoses Not on filedocumented in this encounter Care Teams Voice Over Announcer Relationship Specialty Start Date End Date Elke Ang MD [address] [place] [address] PCP - General 12/22/10 documented as of this encounter
--- OUTSIDE RECORDS SUMMARY | 2024-09-21 06:39 | XMS_ITS | Encounter Summary ---
Author Organization [facility] Address [facility] [place] [address] Care Team Providers Care Operation Supervisor Name Role Phone Pham Crocker MD Primary Care Provider [phone] Encounter Details Date Type Department Care Team (Late st Contact Info) Description 09/18/2015 Orders [place] [address] Bossman Bullard MD [facility] [address] Social History Tobacco Use Types Packs/Day Years [...] on filedocumented in this encounter Care Teams Operation Supervisor Relationship Specialty Start Date End Date Pham Crocker MD PCP - General 07/21/10 12/21/18 documented as of this encounter
--- OUTSIDE RECORDS SUMMARY | 2024-09-21 06:39 | XMS_ITS | Encounter Summary ---
Author Organization [facility] Address [facility] [place] [address] Care Team Providers Care Marine Meteorologist Name Role Phone Leigh Stern APRN Primary Care Provider [phone] Encounter Details Date Type Department Care Team (Late st Contact Info) Description 07/01/2021 Interpretation Only [address] [address] Rajiv Price MD [facility] [place] [address] Social History Tobacco Use Types Packs/Day Years [...] Procedure Name Priority Date/Time Associated Diagnosis Comments US BREAST SCAN LIMITED Routine 07/01/2021 10:49 AM EDT documented in this encounter Results * US BREAST SCAN LIMITED UNILATERAL (07/01/2021 10:49 AM EDT) PT CLASS O RAD ADMITDTTM RAD PT RAD INFO [id number]^V IAZMENSKI^AL EXEI RAD EXAM DESC UBREASTL^US BREAST LIMITED^RIS RAD Anatomical Region Laterality Modality Breast Other Impressions 07/01/2021 10:53 AM EDT BI-RADS Category 2. Benign findings. RECOMMENDATION: Return to routine screening. Thank you for letting us participate in the care of this patient. ??If you are a health care provider and have any questions regarding this report, please contact the number below. ??For patients who have questions please contact the health director of healthcare systems that requested your imaging first. ? Electronically signed by: Rajiv Price MD, [facility] ([phone]), at 07/01/2021 10:53 AM Narrative 07/01/2021 10:53 AM EDT EXAMINATION: US BREAST LIMITED, MAMMO TOMOSYNTHESIS DIAG UNI, DX MAMMO INCLUDING CAD UNILATE CLINICAL HISTORY: Left breast 9mm FA, 3mm FN TECHNIQUE: CC and MLO compression views of the left breast, 2-D and 3-D, followed by diagnostic ultrasound. COMPARISON: Screening mammogram dated June 24, 2021 FINDINGS: Diagnostic mammogram: The mammographic abnormality at the 11-12 o'clock 3 cm from the nipple effaces without residual mass or architectural distortion. Diagnostic ultrasound: No mass or abnormal shadowing. Mild architectural distortion consistent with known postsurgical scar at the site of prior lumpectomy in 2007. Procedure Note Rajiv Price MD - 07/01/2021 EXAMINATION: US BREAST LIMITED, MAMMO TOMOSYNTHESIS DIAG UNI, DX MAMMOINCLUDING CAD UNILATE CLINICAL HISTORY: Left breast 9mm FA, 3mm FN TECHNIQUE: CC and MLO compression views of the left breast, 2-D and 3-D, followedby diagnostic ultrasound. COMPARISON: Screening mammogram dated June 24, 2021 FINDINGS: Diagnostic mammogram: The mammographic abnormality at the 11-12 o'clock 3cm from the nipple effaces without residual mass or architecturaldistortion. Diagnostic ultrasound: No mass or abnormal shadowing. Mild architectural distortion consistent with known postsurgical scar at the site of prior lumpectomy in 2007. IMPRESSION BI-RADS Category 2. Benign findings. RECOMMENDATION: Return to routine screening. Thank you for letting us participate in the care of this patient. If youare a health care provider and have any questions regarding this report,please contact the number below. For patients who have questions please contactthe health director of healthcare systems that requested your imaging first. Rajiv Price MD PACS IMAGES documented in this encounter Visit Diagnoses Not on filedocumented in this encounter Care Teams Marine Meteorologist Relationship Specialty Start Date End Date Leigh Stern APRN [address] [place] [address] PCP - General Family Medicine 12/22/18 documented as of this encounter
--- OUTSIDE RECORDS SUMMARY | 2024-09-21 06:39 | XMS_ITS | Encounter Summary ---
Author Organization [facility] [place] [address] Care Team Providers Care Lei Maker Name Role Phone Pham Crocker MD Primary Care Provider [phone] Reason for Visit * Reason Onset Date Comments Labs Only 01/06/2012 Encounter Details Date Type Department Care Team (Late st Contact Info) Description 01/06/2012 Telephone [place] [phone] Lila Rodriguez, PATRICKE Labs Only Social History Tobacco Use Types Packs/Day Years Used Date Smoking Tobacco: Former Cigarettes Q uit: 01/04/1981 Alcohol Use Standard Drinks/Week Comments Not Asked 0 (1 standard drink = 0.6 oz pur e alcohol) Sex and Gender Information Value Date Recorded Sex Assigned at Not on file Gender Identity Not on file Sexual Orientation Not on file documented as of this encounter Miscellaneous Notes * Telephone Encounter - Lila Rodriguez RN - 01/06/2012 2:46 PM EDT I left a message that the patient needs to have labwork prior to the appointment. The paperwork is already at the lab. documented in this encounter Plan of Treatment Not on file documented as of this encounter Visit Diagnoses Not on filedocumented in this encounter Care Teams Lei Maker Relationship Specialty Start Date End Date Pham Crocker MD PCP - General 07/21/10 12/21/18 documented as of this encounter
--- OUTSIDE RECORDS SUMMARY | 2024-09-21 06:39 | XMS_ITS | Encounter Summary ---
Author Organization [facility] Address [facility] [place] [address] Care Team Providers Care Airport Security Screener Name Role Phone Leigh Stern APRN Primary Care Provider [phone] Encounter Details Date Type Department Care Team (Latest Contact Info) Description 02/13/2019 9:37 PM EDT - 02/13/2019 11:59 PM EDT Hospital Encounter [place] [phone] Discharge Disposition: Home Social History Tobacco Use [...] on file documented as of this encounter Medications at Time of Discharge Medication Sig Dispensed Refills Start Date End Date multivitamin with minerals (THERA-M) 9-0.4 mg Tablet Take 1 tablet by mouth daily. levothyroxine (SYNTHROID) 88 mcg Tablet Take 1 tablet by mouth daily. 90 tablet 4 09/18/2015 lisinopril (PRINIVIL;ZESTRIL) 40 mg tablet Take 40 mg by mouth daily. simvastatin (ZOCOR) 80 mg tablet Take 80 mg by mouth nightly. hydrochlorothiazide (HYDRODIURIL) 25 mg tablet Take 12.5 mg by mouth daily. 08/17/2013 ACETAMINOPHEN/DP-HYDRAM HCL (TYLENOL PM ORAL) 12/23/2009 acetaminophen (TYLENOL EXTRA STRENGTH) 500 mg tablet 12/23/2009 aspirin (CRISTOBAL CHILDRENS ASPIRIN) 81 mg chewable tablet 12/23/2009 nitroGLYcerin (NITROSTAT) 0.4 mg SL tablet 12/23/2009 Mszbcxqwxvyhq-Ev-Ohde-Mi nerals (ONE-A-DAY WOMENS FORMULA) 27-0.4 mg Tab 12/23/200902/21 documented as of this encounter Plan of Treatment Not on file documented as of this encounter Procedures Procedure Name Priority Date/Time Associated Diagnosis Comments SURGICAL PATHOLOGY REPORT Routine 02/13/2019 11:10 AM EDT documented in this encounter Results * Surgical Pathology Report (02/13/2019 11:10 AM EDT) Final Diagnosis [id number] ? Location: [facility] The signing pathologist has (i) examined the relevant preparation(s) for the specimen(s) and (ii) rendered or confirmed the diagnosis(es). . ?Surgical Pathology DIAGNOSIS Soft tissue, right back, mass, excision: - Consistent with lipoma Electronically signed by: ??Arsalan Owens MD Verified: ??02/19/2019 ?Dermatopatholo gist, Bone & Soft Tissue Pathologist Performed at: ??-[facility] Dept. of Pathology, [place], [place] CLINICAL INFORMATION Specimen Submitted: A - Lipoma right back Clinical History and Diagnosis: Lipoma right back Referring Identifier: ?(not provided) SPECIMEN PROCESSING A - Labeled/Fixative : Patient demographics, formalin. Quantity/Size: Fragments, aggregating to 0.8 x 2.8 x 1.5 cm. Tissue Description: Machado-yellow friable soft tissue fragments admixed with pink-brown fibromembranous tissue. The cut surfaces range from machado-pink and yellow to purple- brown. Sections/Process ing: Professor Of Practice sections in 2 cassettes labeled A1-A2. ??jmb 02/19/2019 1:33 PM EDT [facility] SOFT TISSUE MASS / Unknown 02/13/2019 11:10 AM EDT 02/13/2019 11:10 AM EDT Ranjith Tovar DO PATHOLOGY/CYT OLOGY ORDERABLES [facility] [place] [address] documented in this encounter Visit Diagnoses Not on filedocumented in this encounter Care Teams Airport Security Screener Relationship Specialty Start Date End Date Leigh Stern APRN [address] [place] [address] PCP - General Family Medicine 12/22/18 documented as of this encounter
--- OUTSIDE RECORDS SUMMARY | 2024-09-21 06:39 | XMS_ITS | Encounter Summary ---
Author Organization [facility] Address [address] [place] [address] Care Team Providers Care Aquatics Instructor Name Role Phone Unavailable Primary Care Provider Unavailabl e Encounter Details Date Type Department Care Team ([facility] st Contact Info) Description 12/18/[address] [facility] Laboratory Services - [facility] ([facility] [address] [place], [place] [id number] Leigh Stern, HOUSEHOLD MANAGER [address] [place] [address] Social History Tobacco Use Types Packs/Day Years [...] Date/Time Associated Diagnosis Comments SURGICAL PATHOLOGY Routine 12/18/2010 0:00 EDT documented in this encounter Results * SURGICAL PATHOLOGY (12/18/2010 0:00 EDT) Pathology Report: SURGICAL PATHOLOGY REPORT ? Reports generated via electronic interface contain original data; ? however they are lacking the format of the original report. ? Caution should be taken when reading/interpreting unformatted reports. ? Name: ? BOB, YESSY ? Accession #: ? [id number] ? : ? 1945 (Age: 65) ??F ? Collect Date: ? 12/18/2010 ? Location: ? [facility] ? Receive Date: ? 12/21/2010 ? Provider: LEIGH M BRISTOL HOUSEHOLD MANAGER ? Copy to: ? Final Pathologic Diagnosis: ? 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 ? Microscopic Description: ? There is orthohyperkeratosis with intracorneal hemorrhage. ??The epidermis ?? is hyperplastic with papillomatosis and acanthosis. ??Immediately beneath the ? epidermis, there are dilated vessels that are filled with erythrocytes. ??Deeper levels have been examined. ??(Dr. Ag)/amna ? Document reviewed and electronically signed by: ? MAUREEN AG MD ? Report ??Date: 12/23/2010 15:28 ? By the signature above, the attending physician certifies that he/she has ? personally conducted a gross and/or microscopic examination of the described ? specimens and rendered or confirmed the above diagnosis. ? Specimen(s) Received: ? Bx atypical nevus L labia ? Clinical History: ? Atypical nevus L labia; clinical diagnosis code: 238.2 ? Gross Description: ? Received in formalin labelled Bob, Yessy and labial lesion is a 0.4 x 0.3 cm, irregular shave biopsy of machado skin. ??Also received is a 0.2 x 0.2 x ?? 0.2 cm, irregular, machado-white tissue fragment. ??The specimen is entirely ? submitted in a single cassette. (Dalila Rogers)/[facility] ? End of Report ? [facility] 12/18/2010 12/21/2010 8:5 2 EDT us Leigh Stern HOUSEHOLD MANAGER PATHOLOGY ORDERABLES Lisa l Result [facility] [address] [place] [address] documented in this encounter Visit Diagnoses Not on filedocumented in this encounter
--- OUTSIDE RECORDS SUMMARY | 2024-09-21 06:39 | XMS_ITS | Encounter Summary ---
Author Organization [facility] Address [address] [place] [address] Care Team Providers Care Assembler Ping Pong Table Name Role Phone Elke Ang MD Primary Care Provider [phone] Encounter Details Date Type Department Care Team (Late st Contact Info) Description 04/28/2017 Results Only [facility] [phone] Ranjith Velazquez, DO [address] [facility] [address] [place], [place] [id number] Social History Tobacco Use Types Packs/Day Years [...] Date/Time Associated Diagnosis Comments SURGICAL PATHOLOGY Routine 04/28/2017 13 :28 EDT documented in this encounter Results * SURGICAL PATHOLOGY (04/28/2017 13:28 EDT) Pathology Report: SURGICAL PATHOLOGY REPORT Reports generated via electronic interface contain original data; however they are lacking the format of the original report. Caution should be taken when reading/interpret ing unformatted reports. Name: ? YESSY ROJAS ? Accession #: ? [id number] ? : ? 1945 (Age: 72) ??F ? Collect Date: ? 04/28/2017 ? Location: ? [facility] ? Receive Date: ? 04/29/2017 ? Provider: RANJITH VELAZQUEZ DO Copy to: ELKE ANG MD ? Final Pathologic Diagnosis: A. 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 ?? B. STOMACH, ANTRUM, BIOPSY: - ??Antral mucosa with reactive gastropathy. - ??No evidence of Helicobacter pylori on H&E. C. ESOPHAGUS, DISTAL, BIOPSY: - ??Squamous and adjoining cardia type mucosa with features of reflux esophagitis. - ??No intestinal metaplasia or dysplasia identified. D. ESOPHAGUS, PROXIMAL, BIOPSY: - ??Reactive squamous mucosa with no diagnostic abnormality. Document reviewed and electronically signed by: FRANCA BURLESON MD Report ??Date: 05/05/2017 15:57 By the signature above, the attending physician certifies that he/she has personally conducted a gross and/or microscopic examination of the described specimens and rendered or confirmed the above diagnosis. Specimen(s) Received: A. ??Duodenum bx (#1) B. ??Antrum bx (#2) C. ??Distal esophagus bx (#3) D. ??Prox. esophagus bx (#4) Clinical History: Dysphagia Gross Description: A. ?Received in formalin labelled with proper patient identification (initials B, M) and duodenum bx are three pink-machado tissues (0.2 x 0.1 x 0 1 cm, 0.2 x 0.2 x 0.2 cm and 0.2 x 0.2 x 0.2 cm). Entirely submitted in A1. B. ?Received in formalin labelled with proper patient identification (initials B, M) and antrum bx are two pink-machado tissues (0.4 x 0.3 x 0.2 cm and 0.4 x 0.3 x 0.2 cm). Entirely submitted in B1. C. ?Received in formalin labelled with proper patient identification (initials B, M) and distal esophagus bx are four machado-white tissues (0.2 x 0.2 x 0.2 cm to 0.3 x 0.2 x 0.2 cm). Entirely submitted in C1. D. ?Received in formalin labelled with proper patient identification (initials B, M) and proximal esophagus bx is a single machado-white tissue fragment (0.3 x 0.3 x 0.2 cm). Submitted intact in D1. AVANI Hart (ASCP) 04/29/2017 5:17 PM End of Report [facility] 04/28/2017 13:2 8 EDT 04/29/2017 13:28 EDT Ranjith Velazquez DO PATHOLOGY ORDERABLES Fi nal Result [facility] [address] [place] [address] documented in this encounter Visit Diagnoses Not on filedocumented in this encounter Care Teams Assembler Ping Pong Table Relationship Specialty Start Date End Date Elke Ang MD [address] [place] [address] PCP - General 12/22/10 documented as of this encounter
--- OUTSIDE RECORDS SUMMARY | 2024-09-21 06:39 | XMS_ITS | Encounter Summary ---
Author Organization [facility] Address [facility] [place] [address] Care Team Providers Care Ocean Lifeguard Specialist Name Role Phone Pham Crocker MD Primary Care Provider [phone] Encounter Details Date Type Department Care Team (Latest Contact Info) Description 02/15/2018 9:19 PM EDT - 02/15/2018 11:59 PM [place]T [place] [id number] Discharge Disposition: Home Social History Tobacco Use [...] nitroGLYcerin (NITROSTAT) 0.4 mg SL tablet 12/23/2009 Bdtbgrnplmyij-Qu-Ltpt-Mi nerals (ONE-A-DAY WOMENS FORMULA) 27-0.4 mg Tab 12/23/200902/21 documented as of this encounter Plan of Treatment Not on file documented as of this encounter Procedures Procedure Name Priority Date/Time Associated Diagnosis Comments SURGICAL PATHOLOGY REPORT Routine 02/15/2018 10:53 AM EDT documented in this encounter Results * Surgical Pathology Report (02/15/2018 10:53 AM EDT) Final Diagnosis [id number] ? Location: [facility] The signing pathologist has (i) examined the relevant preparation(s) for the specimen(s) and (ii) rendered or confirmed the diagnosis(es). . ?Surgical Pathology DIAGNOSIS A - Ascending colon, ?? polypectomy: Sessile serrated adenoma/polyp B - Transverse colon, ?? polypectomy: Hyperplastic polyp CR-PX Electronically signed by: ??Jeremias Mast MD, I Verified: ??02/17/2018 ?Pathologist Performed at: ??-[facility] Dept. of Pathology, [place], [place] CLINICAL INFORMATION Specimen Submitted: A - Ascending colon B - Transverse polyp Clinical History and Diagnosis: History of colon polyps Report to: Ivone Stern Referring Identifier: ?(not provided) SPECIMEN PROCESSING A - Labeled/Fixativ e: Ascending colon polyp, formalin. Quantity/Size: Three, ranging from 0.3-0.5 cm. Tissue Description: Soft, machado-pink polypoid tissue. Sections/Proces sing: (T1) B - Labeled/Fixativ e: Transverse polyp, formalin. Quantity/Size: One, 0.8 x 0.5 x 0.3 cm. Tissue Description: Soft but firm, machado-pink polyp. Sections/Proces sing: The polyp is inked at the base and trisected. (T1) ??apb 02/17/2018 12:25 PM EDT [facility] GI Biopsy 02/15/2018 10:5 3 AM EDT 02/15/2018 10:53 AM EDT GI Biopsy 02/15/2018 10:5 3 AM EDT 02/15/2018 10:53 AM EDT Ranjith Tovar DO PATHOLOGY/CYT OLOGY ORDERABLES [facility] [place] [address] documented in this encounter Visit Diagnoses Not on filedocumented in this encounter Care Teams Ocean Lifeguard Specialist Relationship Specialty Start Date End Date Pham Crocker MD PCP - General 07/21/10 12/21/18 documented as of this encounter
--- OUTSIDE RECORDS SUMMARY | 2024-09-21 06:39 | XMS_ITS | Encounter Summary ---
Author Organization [facility]1983 Address [facility] [address] [address] Care Team Providers Care Director Asset Name Role Phone Pham Crocker MD Primary Care Provider [phone] Reason for Visit * Reason Comments Other annual Encounter Details Date Type Department Care Team (Late st Contact Info) Description 01/04/2011 7:00 AM EDT Office [place] [address] Bossman Bullard MD [facility] [place] [address] Hypothyroid; Thyroid cancer Discharge Disposition: Home Social History Tobacco Use [...] Sign Reading Time Taken Comments Blood Pressure 156/58 01/04/2011 7:55 AM EDT Pulse 50 01/04/2011 7:55 AM EDT Temperature - - Respiratory Rate - - Oxygen Saturation - - Inhaled Oxygen Concentration - - Weight 86.2 kg (190 lb) 01/04/2011 7:55 AM EDT Height - - Body Mass Index - - documented in this encounter Progress Notes * Bossman Bullard MD - 01/04/2011 9:01 AM EDT Subjective: Patient ID: Bing Rojas is a 65 y.o. female. HPI Review of Systems Objective: Physical Exam Assessment and Plan: No problem-specific visit notes found for this encounter. >20 of 25 minute appointment spent counseling concerning follow up of her thyroid cancer. * Bossman Bullard MD - 01/04/2011 8:02 AM EDT Subjective: Patient ID: Bing Rojas is a 65 y.o. female with a history of a multi-focal subcentimeter papillary thyroid cancer, S/P thyroidectomy 03/2007 / S/P I131 ablation. No evidence of recurrence since initial surgery. Feels weel, no complaints c/w being hyperthyroid. . HPI Review of Systems Objective: Physical Exam Constitutional: She appears well-developed and well-nourished. Neck: No thyromegaly present. Pulmonary/Chest: Effort normal. No stridor. Neurological: She is alert. Psychiatric: She has a normal mood and affect. Her behavior is normal. Assessment and Plan: S/P thyroidectomy 2006 for PTC with subsequent I131 ablation.;no evidence recurrence on suppressiveL-T4 therapy. Plan: await Tg results, assume undetectable; will keep TSH suppressed x 5 years post thyroidectomy. documented in this encounter Plan of Treatment Not on file documented as of this encounter Procedures Procedure Name Priority Date/Time Associated Diagnosis Comments THYROGLOBULIN Routine 01/04/2011 7:05 AM EDT Hypothyroid TSH Routine 01/04/2011 7:05 AM EDT Hypothyroid documented in this encounter Results * (ABNORMAL) TSH (01/04/2011 7:05 AM EDT) Thyroid Stimulating Hormone 0.01(L) 0.27 - 4.20 mcIU/mL TED [facility] Blood specimen (specimen) 01/04/2011 7:05 AM EDT 01/04/2011 7:11 AM EDT Bossman Bullard MD CHEMISTRY ORDERABLES Performing Organization Address [facility] Co de Phone Number TED ROSEN * Thyroglobulin (01/04/2011 7:05 AM EDT) Thyroglobulin <0.4 <=54.9 ng/mL [facility] Comment: Interpret with caution. Tg levels may [...] does not exclude recurrent or metastatic disease. (Hay ID et al. AACE Clinical Practice Guidelines for the Management of Thyroid Carcinoma. Endocrine Practice 1997;3:60-71). Tg levels after rhTSH administration may be lower than those obtained with T4 withdrawal protocol ([place] BR et al. J Clin Endo Metab 1999;84:9243-3327). Assay performed using the DPC Immulite Tg immunometric assay. (lowest detection limit is <0.4 ng/ml). Thyroglob Ab <20.0 0.0 - 40.0 IU/mL [facility] Comment: Assay performed is the DPC Immulite Tg-Ab immunometric assay. (Cutoff for TgAb negativity is <20 IU/ml) Blood specimen (specimen) 01/04/2011 7:05 AM EDT 01/04/2011 11:54 AM EDT Bossman Bullard MD LAB SEND OUT ORDERAB LES Performing Organization Address City/[facility] Co de Phone Number TED ROSEN documented in this encounter Visit Diagnoses Diagnosis Hypothyroid Unspecified hypothyroidism Thyroid cancer Malignant neoplasm of thyroid gland documented in this encounter Care Teams Director Asset Relationship Specialty Start Date End Date Pham Crocker MD PCP - General 07/21/10 12/21/18 documented as of this encounter
--- OUTSIDE RECORDS SUMMARY | 2024-09-21 06:39 | XMS_ITS | Encounter Summary ---
Author Organization [facility] Address [facility] [place] [address] Care Team Providers Care Tree Killer Name Role Phone Pham Crocker MD Primary Care Provider [phone] Encounter Details Date Type Department Care Team (Late st Contact Info) Description 09/17/2015 Orders Only [place] [address] Bossman Bullard MD [facility] [place] [address] Thyroid cancer Social History Tobacco Use Types Packs/Day Years [...] documented as of this encounter Results * TSH (09/18/2015 10:15 AM EST) Thyroid Stimulating Hormone 0.45 0.27 - 4.20 mcIU/mL TED ROSEN Blood specimen (specimen) 09/18/2015 10:15 AM EST 09/18/2015 10:26 AM EST Narrative Resulting Agency Comment Spec In Lab Bossman Bullard MD [facility] * Thyroglobulin (09/18/2015 10:15 AM EST) Thyroglobulin <0.4 <=54.9 ng/mL [facility] Comment: Interpret with caution. Tg levels may [...] BR et al. J Clin Endo Metab 1999;84:6971-4820). Assay performed using the DPC Immulite Tg immunometric assay. (lowest detection limit is <0.4 ng/ml). Thyroglob Ab <20.0 0.0 - 40.0 IU/mL [facility] Comment: Assay performed is the DPC Immulite Tg-Ab immunometric assay. (Cutoff for TgAb negativity is <20 IU/ml) Blood specimen (specimen) 09/18/2015 10:15 AM EST 09/18/2015 2:09 PM EST Narrative Resulting Agency Comment Spec In Lab Bossman Bullard MD LAB SEND OUT ORDERAB LES [facility] documented in this encounter Visit Diagnoses Diagnosis Thyroid cancer Malignant neoplasm of thyroid gland documented in this encounter Care Teams Tree Killer Relationship Specialty Start Date End Date Pham Crocker MD PCP - General 07/21/10 12/21/18 documented as of this encounter
--- OUTSIDE RECORDS SUMMARY | 2024-09-21 06:39 | XMS_ITS | Encounter Summary ---
Author Organization [facility] Address [facility] [place] [address] Care Team Providers Care Wet End Helper Name Role Phone Leigh Stern APRN Primary Care Provider [phone] Encounter Details Date Type Department Care Team (Late st Contact Info) Description 07/01/2021 Interpretation Only [address] [address] Rajiv Price MD [facility] [place] [address] Social History Tobacco Use Types Packs/Day Years [...] Name Priority Date/Time Associated Diagnosis Comments MAMMO DIAGNOSTIC CAD BILATERAL Routine 07/01/2021 10:34 AM EDT documented in this encounter Results * Mammo Diagnostic Cad Bilateral (07/01/2021 10:34 AM EDT) PT CLASS O DH RAD ADMITDTTM DH RAD PT DH RAD INFO [id number]^VIA ZMENSKI^RAJIV DH RAD EXAM DESC MADDBI^DX MAMMO INCLUDING CAD UNILATE^RIS RAD Anatomical Region Laterality Modality Breast Bilateral Mammography Impressions 07/01/2021 10:53 AM EDT BI-RADS Category 2. Benign findings. RECOMMENDATION: Return to routine screening. Thank you for letting us participate in the care of this patient. ??If you are a health care provider and have any questions regarding this report, please contact the number below. ??For patients who have questions please contact the health healthcare economics manager that requested your imaging first. ? Narrative 07/01/2021 10:53 AM EDT EXAMINATION: US [...] patients who have questions please contactthe health healthcare economics manager that requested your imaging first. Rajiv Price MD IMG MAMMO ORDERAB LES documented in this encounter Visit Diagnoses Not on filedocumented in this encounter Care Teams Wet End Helper Relationship Specialty Start Date End Date Leigh Stern APRN [address] [place] [address] PCP - General Family Medicine 12/22/18 documented as of this encounter
--- OUTSIDE RECORDS SUMMARY | 2024-09-21 06:39 | XMS_ITS | Encounter Summary ---
Author Organization [facility] [place] [address] Care Team Providers Care Discharge Coordinator Name Role Phone Leigh Stern APRN Primary Care Provider [phone] Encounter Details Date Type Department Care Team (Late st Contact Info) Description 03/16/2007 Orders [place] [id number] Carlo Sarabia MD Social History Tobacco Use Types Packs/Day Years Used Date Smoking Tobacco: Never Assessed Sex and Gender Information Value Date Recorded Sex Assigned at Not on file Gender Identity Not on file Sexual Orientation Not on file documented as of this encounter Plan of Treatment Not on file documented as of this encounter Procedures Procedure Name Priority Date/Time Associated Diagnosis Comments NON-NURSING HOME MANAGER FINAL REPORT Routine 03/16/2007 3:56 PM EDT documented in this encounter Results * Non-Turfgrass Technician Final Report (03/16/2007 3:56 PM EDT) Non-Turfgrass Technician Final Report [id number] ? Location: The signing pathologist has (i) examined the relevant preparation(s) for the specimen(s) and (ii) rendered or confirmed the diagnosis(es). . ? Pathology Non-Turfgrass Technician Cytology Final Report Clinical Information Specimen Source: ?Thyroid/FNA; left Clinical History/Impression: 4.4cm isuechoic. Left thyroid mass. R/O malignancy. Gross Description: ?? Rec'd ??in Cytorich red, ??approx. 10 ml. total volume of ??clear, pink fluid, ??with dark flecks. ?Total Prep - Diff Quik 2; Pap Stain 2; Cell Block 1.. Interpretation Specimen submitted is satisfactory. Diagnosis Atypical 03/20/07 ?Screened by: ? SLA ?Rescreened by: ?? HEARING AIDE TECHNICIAN 03/23/07 ?Verified by: ? Ada Mitchell ? Pathologist ? (Electronic Signature) Comment Sheets of follicular/ metaplastic cells, some with nuclear hyperchromaticity, nucleoli and nuclear grooves. Also noted are thick and thin colloid, rare multinucleated giant cells. No conclusive intranuclear pseudoinclusions are seen. Overall, the features are atypical and a Papillary carcinoma is not excluded. Middle School History Teacher material reviewed with Dr Cali who concurs. TED ROSEN 03/16/2007 3:56 PM EDT Carlo Sarabia MD PATHOLOGY/CYTOLOGY O FARHAD TED ROSEN documented in this encounter Visit Diagnoses Not on filedocumented in this encounter Care Teams Discharge Coordinator Relationship Specialty Start Date End Date Leigh Stern APRN [address] [place] [address] PCP - General Family Medicine 12/22/18 documented as of this encounter
--- OUTSIDE RECORDS SUMMARY | 2024-09-21 06:39 | XMS_ITS | Encounter Summary ---
Author Organization [facility] Address [facility] [place] [address] Care Team Providers Care Golf Technician Name Role Phone Leigh Stern APRN Primary Care Provider [phone] Encounter Details Date Type Department Care Team (Late st Contact Info) Description 02/14/2019 External [place] [address] Provider, Scanning Social History Tobacco Use Types Packs/Day Years [...] Priority Date/Time Associated Diagnosis Comments SURGICAL PATHOLOGY SCAN Routine 02/14/2019 documented in this encounter Results * Scan Doc: Surgical Pathology (02/14/2019) Historical Provider MD [place] MGR SCAN EX T ORDR/RSLT documented in this encounter Visit Diagnoses Not on filedocumented in this encounter Care Teams Golf Technician Relationship Specialty Start Date End Date Leigh Stern APRN [address] [place] [address] PCP - General Family Medicine 12/22/18 documented as of this encounter
--- OUTSIDE RECORDS SUMMARY | 2024-09-21 06:39 | XMS_ITS | Encounter Summary ---
Author Organization [facility] Address [facility] [place] [address] Care Team Providers Care Administrative Technician Name Role Phone Pham Crocker MD Primary Care Provider [phone] Encounter Details Date Type Department Care Team (Late st Contact Info) Description 04/07/2017 External [place] [address] Bossman Bullard MD [facility] [place] [address] Social History Tobacco Use Types Packs/Day Years [...] LAB CBC CMP THYROID RESULTS PANEL Routine 03/23/2017 documented in this encounter Results * (ABNORMAL) CBC / CMP / Thyroid External Results (03/23/2017) White Blood Cell 6.4(Buncher Operator al Lab) Red Blood Cell 4.15(Exter nal Lab) Hemoglobin 13.3(Exter nal Lab) Hematocrit 38.9(Exter nal Lab) Blood Urea Nitrogen 24(Externa l Lab) Creatinine 1.00(EXTER NAL/ABN) Glucose 87(Externa l Lab) Free T4 1.4(Buncher Operator al Lab) 03/23/2017 Leigh Stern APRN EXTERNAL LAB [facility]ANN documented in this encounter Visit Diagnoses Not on filedocumented in this encounter Care Teams Administrative Technician Relationship Specialty Start Date End Date Pham Crocker MD PCP - General 07/21/10 12/21/18 documented as of this encounter
--- OUTSIDE RECORDS SUMMARY | 2024-09-21 06:39 | XMS_ITS | Encounter Summary ---
Author Organization [facility] [place] [address] Care Team Providers Care Bioengineer Name Role Phone Pham Crocker MD Primary Care Provider [phone] Encounter Details Date Type Department Care Team (Latest Contact Info) Description 09/18/2015 10:20 AM EST [place] [phone] Thyroid cancer Social History Tobacco Use Types [...] Name Priority Date/Time Associated Diagnosis Comments THYROGLOBULIN STAT 09/18/2015 10:15 AM EST Thyroid cancer TSH Routine 09/18/2015 10:15 AM EST Thyroid cancer documented in this encounter Results * TSH (09/18/2015 10:15 AM EST) Thyroid Stimulating Hormone 0.45 0.27 - 4.20 mcIU/mL [facility] Blood specimen (specimen) 09/18/2015 10:15 AM EST 09/18/2015 10:26 AM EST Narrative Resulting Agency Comment Spec In Lab Bossman Bullard MD CHEMISTRY ORDERABLES TED ROSEN * Thyroglobulin (09/18/2015 10:15 AM EST) Thyroglobulin <0.4 <=54.9 ng/mL [facility] Comment: Interpret with caution. Tg levels may [...] than those obtained with T4 withdrawal protocol ([place] BR et al. J Clin Endo Metab 1999;84:2994-0062). Assay performed using the DPC Immulite Tg immunometric assay. (lowest detection limit is <0.4 ng/ml). Thyroglob Ab <20.0 0.0 - 40.0 IU/mL [facility] Comment: Assay performed is the DPC Immulite Tg-Ab immunometric assay. (Cutoff for TgAb negativity is <20 IU/ml) Blood specimen (specimen) 09/18/2015 10:15 AM EST 09/18/2015 2:09 PM EST Narrative Resulting Agency Comment Spec In Lab Bossman Bullard MD LAB SEND OUT ORDERAB LES Performing Organization Address [facility] Co de Phone Number TED ROSEN documented in this encounter Visit Diagnoses Diagnosis Thyroid cancer Malignant neoplasm of thyroid gland documented in this encounter Care Teams Bioengineer Relationship Specialty Start Date End Date Pham Crocker MD [phone] (work) PCP - General 07/21/10 12/21/18 documented as of this encounter
--- OUTSIDE RECORDS SUMMARY | 2024-09-21 06:39 | XMS_ITS | Encounter Summary ---
Author Organization [facility] Address [facility] [place] [address] Care Team Providers Care Electrical Integrator Name Role Phone Pham Crocker MD Primary Care Provider [phone] Encounter Details Date Type Department Care Team (Late st Contact Info) Description 09/17/2013 Orders [place] [address] Bossman Bullard MD [facility] [place] [address] Social History Tobacco Use Types Packs/Day Years [...] on filedocumented in this encounter Care Teams Electrical Integrator Relationship Specialty Start Date End Date Pham Crocker MD PCP - General 07/21/10 12/21/18 documented as of this encounter
--- OUTSIDE RECORDS SUMMARY | 2024-09-21 06:39 | XMS_ITS | Encounter Summary ---
Author Organization [facility] [place] [address] Care Team Providers Care Oil Agent Name Role Phone Leigh Stern APRN Primary Care Provider [phone] Encounter Details Date Type Department Care Team (Late st Contact Info) Description 06/24/2021 Interpretation Only [address] [address] Leigh Stern APRN [address] [place], [place] [id number] Social History Tobacco Use Types Packs/Day Years [...] Diagnosis Comments MAMMO SCREENING CAD BILATERAL Routine 06/24/2021 11:21 AM EDT documented in this encounter Results * Mammo Screening Cad Bilateral (06/24/2021 11:21 AM EDT) PT CLASS O DH RAD ADMITDTTM RAD PT RAD INFO [id number]^BR ISTOL^LEIGH RAD EXAM DESC MADDSC^SCREEN MAMMO BL INCLUDES CAD^RIS RAD Anatomical Region Laterality Modality Breast Bilateral Mammography Impressions 06/24/2021 2:05 PM EDT BI-RADS Category 0: Incomplete-Need Additional Imaging Evaluation Thank you for letting us participate in the care of this patient. ??If you are a health care provider and have any questions regarding this report, please contact the number below. ??For patients who have questions please contact the health career resource technician that requested your imaging first. ? Electronically signed by: Rajiv Price MD, [facility] ([phone]), at 06/24/2021 2:05 PM Narrative 06/24/2021 2:05 PM EDT EXAMINATION: BREAST SCREEN TOMOSYNTHESIS BI, SCREEN MAMMO BL INCLUDES CAD CLINICAL HISTORY: Screening mammogram for malignant neoplasm of breast Family history of breast cancer: Mother Reproductive history: Parous No personal history of breast cancer. COMPARISON: Previous mammograms were reviewed. TECHNIQUE: ??Bilateral MLO and CC digital mammograms were obtained and reviewed with CAD. ?? 2-D and 3-D tomosynthesis images were obtained. FINDINGS: 9 mm focal asymmetry at 12 o'clock 3 cm from the nipple, which requires additional imaging evaluation. Breast density: The breasts are extremely dense, which lowers the sensitivity of mammography. Procedure Note Rajiv Price MD - 06/24/2021 EXAMINATION: BREAST SCREEN TOMOSYNTHESIS BI, SCREEN MAMMO BL INCLUDESCAD CLINICAL HISTORY: Screening mammogram for malignant neoplasm of breast Family history of breast cancer: Mother Reproductive history: Parous No personal history of breast cancer. COMPARISON: Previous mammograms were reviewed. TECHNIQUE: Bilateral MLO and CC digital mammograms were obtained andreviewed with CAD. 2-D and 3-D tomosynthesis images were obtained. FINDINGS: 9 mm focal asymmetry at 12 o'clock 3 cm from the nipple, which requires additional imaging evaluation. Breast density: The breasts are extremely dense, which lowers thesensitivity of mammography. IMPRESSION BI-RADS Category 0: Incomplete-Need Additional Imaging Evaluation Thank you for letting us participate in the care of this patient. If youare a health care provider and have any questions regarding this report,please contact the number below. For patients who have questions please contactthe health career resource technician that requested your imaging first. Leigh Stern APRN IMG MAMMO ORDERAB LES documented in this encounter Visit Diagnoses Not on filedocumented in this encounter Care Teams Oil Agent Relationship Specialty Start Date End Date Leigh Stern APRN [address] [place] [id number] PCP - General Family Medicine 12/22/18 documented as of this encounter
--- OUTSIDE RECORDS SUMMARY | 2024-09-21 06:39 | XMS_ITS | Encounter Summary ---
Author Organization [facility] Address [facility] [place] [address] Care Team Providers Care Insurance Healthcare Consultant Name Role Phone Leigh Stern APRN Primary Care Provider [phone] Encounter Details Date Type Department Care Team (Late st Contact Info) Description 03/21/2007 Orders [place] [address] Juan Pal MD [facility] [place] [address] Social History Tobacco Use Types Packs/Day Years [...] Associated Diagnosis Comments SURGICAL PATHOLOGY REPORT Routine 03/21/2007 5:55 PM EDT documented in this encounter Results * Surgical Pathology Report (03/21/2007 5:55 PM EDT) Surgical Pathology Report [id number] ? Location: The signing pathologist has (i) examined the relevant preparation(s) for the specimen(s) and (ii) rendered or confirmed the diagnosis(es). . ?Pathology Surgical Pathology Final Report Clinical Information Specimen Submitted: A - Hepatic flexure polyp: Hepatic flexure B - Stomach polyp: Stomach Clinical History: Colon polyp. Hx of tubulovillous adenoma. Clinical Diagnosis: F/U tubular adenoma, dysphagia, GERD. Gross Description A - Labeled/Fixative: Hepatic flexure polyp, formalin. Qty/Size/Weight: ?Three, ranging from 0.2 cm to 0.3 cm in greatest ?dimension. Tissue Description: ?? Soft, hemorrhagic, red-brown tissue and debris. Sections/Processi ng: ??(T1) B - Labeled/Fixative: Stomach polyp, formalin. Qty/Size/Weight: ?Single, 0.3 x 0.3 x 0.2 cm. Tissue Description: ?? Soft, machado tissue. Sections/Processi ng: ??(T1) ??crh/EJR Microscopic Description Slides reviewed, microscopic description not recorded. Diagnosis A - Hepatic flexure polyp; endoscopic biopsies: Hyperplastic polyp fragments. B - Stomach polyp; endoscopic biopsies: Fundic gland polyp. CR-0 03/22/07 KO 03/22/07 Verified by: ? Leticia Hollingsworth MD ?Pathologist ?(Electronic Signature) The attending pathologist whose signature appears on this report has reviewed all diagnostic slides and has edited the gross and/or microscopic portion of the report in rendering the final pathologic diagnosis. TED ROSEN 03/21/2007 5:55 PM EDT Juan Soto MD PATHOLOGY/CYTOLO GY ORDERABLES TED ROSEN documented in this encounter Visit Diagnoses Not on filedocumented in this encounter Care Teams Insurance Healthcare Consultant Relationship Specialty Start Date End Date Leigh Stern APRN [address] [place] [id number] PCP - General Family Medicine 12/22/18 documented as of this encounter
--- OUTSIDE RECORDS SUMMARY | 2024-09-21 06:39 | XMS_ITS | Encounter Summary ---
Author Organization [facility] [place] [address] Care Team Providers Care Chemical Processing Equipment Repairer Name Role Phone Leigh Stren APRN Primary Care Provider [phone] Encounter Details Date Type Department Care Team (Late st Contact Info) Description 07/09/2022 Interpretation Only [address] [address] Leigh Stern APRN [address] [place], [place] [id number] Social History Tobacco Use Types Packs/Day Years [...] BODY (GENERIC) Routine 07/09/2022 10:14 AM EST documented in this encounter Results * DXA Central Spine, Hip, and/or Whole Body (Generic) (07/09/2022 10:14 AM EST) PT CLASS O DH RAD ADMITDTTM DH RAD PT RAD INFO [id number]^B RISTOL^LEILA NE DH RAD EXAM DESC XDXAC^DEXA SCAN AXIAL^RIS RAD [...] therapist that requested your imaging first. ? Narrative 07/09/2022 10:37 AM EST EXAMINATION: DEXA [...] your imaging first. Leigh Stern APRN IMG DEXA ORDERABL ES documented in this encounter Visit Diagnoses Not on filedocumented in this encounter Care Teams Chemical Processing Equipment Repairer Relationship Specialty Start Date End Date Leigh Stern APRN [address] [place] [address] PCP - General Family Medicine 12/22/18 documented as of this encounter
--- OUTSIDE RECORDS SUMMARY | 2024-09-21 06:39 | XMS_ITS | Encounter Summary ---
Author Organization [facility] Address [address] [place] [address] Care Team Providers Care Clinical Dental Technician Name Role Phone Pham Crocker MD Primary Care Provider [phone] Encounter Details Date Type Department Care Team (Latest Contact Info) Description 04/28/2017 17:36 EDT - 04/28/2017 23:59 EDT Hospital Encounter [address] [address] Unknown, Provider, MD Discharge Disposition: Auto Discharge Social History Tobacco Use Types Packs/Day Years Used Date Smoking Tobacco: Never Assessed Comments Unknown Sex and Gender Information Value Date Recorded Sex Assigned at Not on file Legal Sex Female 18:39 EST Gender Identity Not on file Sexual Orientation Not on file documented as of this encounter Discharge Disposition Disposition Code Departure Means Destination Auto Discharge Home documented in this encounter Plan of Treatment Not on file documented as of this encounter Visit Diagnoses Not on filedocumented in this encounter Care Teams Clinical Dental Technician Relationship Specialty Start Date End Date Pham Crocker MD [address] [place] [address] PCP - General 12/22/10 documented as of this encounter
--- OUTSIDE RECORDS SUMMARY | 2024-09-21 06:39 | XMS_ITS | Clinical Summary ---
Author Organization [facility] Address [address] [place] [address] Care Team Providers Care Driver Lifter Of Sanitation Truck Name Role Phone Pham Crocker MD Primary Care Provider [phone] Social History Tobacco Use Types Packs/Day Years Used Date Smoking Tobacco: Never Assessed Interpersonal Safety Answer Date Record ed Physically Hurt Never 03/30/2020 Verbally Threaten Not on file 03/30/2020 Comments Unknown Sex and Gender Information Value Date Recorded Sex Assigned at Not on file Legal Sex Female 18:39 EST Gender Identity Not on file Sexual Orientation Not on file Plan of Treatment Health Maintenance Due Date Last Done Comments Hepatitis C Screen 1945 Fall Risk Screening 2011 RSV Immunization ( o r 60+ Years) (1 - 1-dose 75+ series) 2021 COVID-19 Vaccine (2023- season) 2024 Care Teams Driver Lifter Of Sanitation Truck Relationship Specialty Start Date End Date Pham Crocker MD [address] [place] [address] PCP - General 12/22/10
--- OUTSIDE RECORDS SUMMARY | 2024-09-21 06:39 | XMS_ITS | Encounter Summary ---
Author Organization [place] [address] Care Team Providers Care Retouching Operator Name Role Phone Leigh Stern APRN Primary Care Provider [phone] Encounter Details Date Type Department Care Team (Late st Contact Info) Description 03/17/[address] [facility] [address] [place] [id number] Melvin Badillo PA [address] [place] [address] Social History Tobacco Use Types Packs/Day Years [...] Name Priority Date/Time Associated Diagnosis Comments XR HIP 2-3 VIEWS LEFT Routine 03/17/2022 9:43 AM EDT documented in this encounter Results * XR Hip 2-3 Views Left (03/17/2022 9:43 AM EDT) PT CLASS O RAD ADMITDTTM RAD PT RAD INFO [id number]^MARCIO BELINDA^MELVIN RAD EXAM DESC XRHIPTVL^XR LEFT HIP UNILATERAL 2+ VIEWS^RIS RAD Anatomical Region Laterality Modality Hip Left Radiographic Olena ging Impressions 03/17/2022 10:37 AM EDT Degenerative changes as above. No acute fracture or dislocation. Thank you for letting us participate in the care of this patient. ??If you are a health care provider and have any questions regarding this report, please contact the number below. ??For patients who have questions please contact the health acute care physician that requested your imaging first. ? Narrative 03/17/2022 10:37 AM EDT EXAMINATION: XR LEFT HIP UNILATERAL 2+ VIEWS CLINICAL HISTORY: Pain in left hip TECHNIQUE: AP pelvis, AP and frog-leg views of the left hip COMPARISON: None FINDINGS: No acute fracture or dislocation. Maintained joint spaces. Adequate acetabular coverage. Acetabular rim osteophytes. Amorphous calcifications adjacent to the greater trochanter on the right. Procedure Note Rajiv Price MD - 03/17/2022 EXAMINATION: XR LEFT HIP UNILATERAL 2+ VIEWS CLINICAL HISTORY: Pain in left hip TECHNIQUE: AP pelvis, AP and frog-leg views of the left hip COMPARISON: None FINDINGS: No acute fracture or dislocation. Maintained joint spaces. Adequateacetabular coverage. Acetabular rim osteophytes. Amorphous calcifications adjacent tothe greater trochanter on the right. IMPRESSION Degenerative changes as above. No acute fracture or dislocation. Thank you for letting us participate in the care of this patient. If youare a health care provider and have any questions regarding this report,please contact the number below. For patients who have questions please contactthe health acute care physician that requested your imaging first. Melvin VARMA IMG DX ORDERABLES documented in this encounter Visit Diagnoses Not on filedocumented in this encounter Care Teams Retouching Operator Relationship Specialty Start Date End Date Leigh Stern APRN [address] [place] [id number] PCP - General Family Medicine 12/22/18 documented as of this encounter
--- OUTSIDE RECORDS SUMMARY | 2024-09-21 06:39 | XMS_ITS | Encounter Summary ---
Author Organization [facility] [place] [address] Care Team Providers Care Hands Hanger Name Role Phone Leigh Stern APRN Primary Care Provider [phone] Encounter Details Date Type Department Care Team (Late st Contact Info) Description 07/11/2023 Interpretation Only [address] [address] Pham Crocker MD [address] [place], [place] [id number] Social History Tobacco Use Types Packs/Day Years [...] as of this encounter Plan of Treatment Pending Results Name Type Priority Associated Diagnoses Date /Time MAMMO SCREENING CAD AND VALENTINE BILATERAL (CH) Imaging Routine 07/11/2023 9 :28 AM EST documented as of this encounter Visit Diagnoses Not on filedocumented in this encounter Care Teams Hands Hanger Relationship Specialty Start Date End Date Leigh Stern APRN [address] [place], [place] [phone] PCP - General Family Medicine 12/22/18 documented as of this encounter
--- OUTSIDE RECORDS SUMMARY | 2024-09-21 06:39 | XMS_ITS | Encounter Summary ---
Author Organization [facility] Address [facility] [place] [place] [address] Care Team Providers Care Risk Management Analyst Name Role Phone Pham Crocker MD Primary Care Provider [phone] Encounter Details Date Type Department Care Team (Late st Contact Info) Description 09/17/2013 Orders [place] [address] Bossman Bullard MD [facility] [place] [address] Thyroid cancer (Primary Dx) Social History Tobacco [...] of this encounter Results * (ABNORMAL) TSH (09/17/2013 8:06 AM EST) Thyroid Stimulating Hormone 0.05(L) 0.27 - 4.20 mcIU/mL TED ROSEN Blood specimen (specimen) 09/17/2013 8:06 AM EST 09/17/2013 8:10 AM EST Narrative Resulting Agency Comment Spec In Lab Bossman Bullard MD CHEMISTRY ORDERABLES TED [employer] * Thyroglobulin (09/17/2013 8:06 AM EST) Thyroglobulin <0.4 <=54.9 ng/mL [facility] Comment: Interpret with caution. Tg levels [...] BR et al. J Clin Endo Metab 1999;84:1068-5046). Assay performed using the DPC Immulite Tg immunometric assay. (lowest detection limit is <0.4 ng/ml). Thyroglob Ab <20.0 0.0 - 40.0 IU/mL [facility] Comment: Assay performed is the DPC Immulite Tg-Ab immunometric assay. (Cutoff for TgAb negativity is <20 IU/ml) Blood specimen (specimen) 09/17/2013 8:06 AM EST 09/17/2013 12:01 PM EST Narrative Resulting Agency Comment Spec In Lab Bossman Bullard MD LAB SEND OUT ORDERAB LES [facility] documented in this encounter Visit Diagnoses Diagnosis Thyroid cancer- Primary Malignant neoplasm of thyroid gland documented in this encounter Care Teams Risk Management Analyst Relationship Specialty Start Date End Date Pham Crocker MD PCP - General 07/21/10 12/21/18 documented as of this encounter
--- OUTSIDE RECORDS SUMMARY | 2024-09-21 06:39 | XMS_ITS | Encounter Summary ---
Author Organization [facility] Address [facility] [place] [address] Care Team Providers Care Air Traffic Controller Center Name Role Phone Pham Crocker MD Primary Care Provider [phone] Reason for Visit * Reason Comments Annual Exam Encounter Details Date Type Department Care Team (Late st Contact Info) Description 01/25/2012 1:00 PM EDT Office [place] [address] Bossman Bullard MD [facility] [place] [address] Thyroid cancer (Primary Dx) Discharge Disposition: Home [...] Sign Reading Time Taken Comments Blood Pressure 156/59 01/25/2012 1:05 PM EDT Pulse 56 01/25/2012 1:05 PM EDT Temperature - - Respiratory Rate - - Oxygen Saturation - - Inhaled Oxygen Concentration - - Weight 84.4 kg (186 lb) 01/25/2012 1:05 PM EDT Height - - Body Mass Index - - documented in this encounter Progress Notes * Bossman Bullard MD - 01/25/2012 1:04 PM EDT Subjective: Patient ID: Bing Rojas is a 66 y.o. female who is here for follow-up of a multi-focal subcentimeter papillary thyroid cancer, S/P thyroidectomy 03/2007 / S/P I131 ablation. Generally feeling well except she recently lost her 42 year old son with IN with 3 teenage children. HPI Review of Systems Objective: Physical Exam Constitutional: She is oriented to person, place, and time. She appears well- developed and well-nourished. Neck: No thyromegaly present. Lymphadenopathy: She has no cervical adenopathy. Neurological: She is alert and oriented to person, place, and time. Psychiatric: She has a normal mood and affect. Her behavior is normal. Thought content normal. Assessment and Plan: I assume that Tg will be undetectable and now that it has been 5 years since thyroidectomy and there has not been any evidence of residual or recurrent PTC will reduce L-T4 to 100 ug qd. Appt made tosee Bing Zhang back in 18 months. 20 of 25 minute appt spent counseling her about adjustment of L-T4 and future f/u of PTC. documented in this encounter Plan of Treatment Not on file documented as of this encounter Procedures Procedure Name Priority Date/Time Associated Diagnosis Comments THYROGLOBULIN Routine 01/25/2012 12:55 PM EDT Thyroid cancer TSH Routine 01/25/2012 12:55 PM EDT Thyroid cancer documented in this encounter Results * Thyroglobulin (01/25/2012 12:55 PM EDT) Thyroglobulin <0.4 <=54.9 ng/mL [facility] Comment: Interpret with caution. Tg levels [...] than those obtained with T4 withdrawal protocol ([place] BR et al. J Clin Endo Metab 1999;84:2569-5891). Assay performed using the DPC Immulite Tg [...] SEND OUT ORDERAB LES Performing Organization Address City/[facility]/ZIP Co de Phone Number [employer] * (ABNORMAL) TSH (01/25/2012 12:55 PM EDT) Thyroid Stimulating Hormone 0.02(L) 0.27 - 4.20 mcIU/mL CERNER MILLENNIUM Blood specimen (specimen) 01/25/2012 12:55 PM EDT 01/25/2012 1:02 PM EDT Narrative Resulting Agency Comment Spec In Lab Bossman Bullard MD CHEMISTRY ORDERABLES Performing Organization Address [facility]/ZIP Co de Phone Number [employer] documented in this encounter Visit Diagnoses Diagnosis Thyroid cancer- Primary Malignant neoplasm of thyroid gland documented in this encounter Care Teams Air Traffic Controller Center Relationship Specialty Start Date End Date Pham Crocker MD PCP - General 07/21/10 12/21/18 documented as of this encounter
--- OUTSIDE RECORDS SUMMARY | 2024-09-21 06:39 | XMS_ITS | Encounter Summary ---
Author Organization [facility] Address [address] [place] [address] Care Team Providers Care Restorative Rehab Aide Name Role Phone Unavailable Primary Care Provider Unavailabl e Encounter Details Date Type Department Care Team (Late st Contact Info) Description 03/27/2008 Before PRISM Converted Visit (Maple) [facility] - Maple conversion [address] [place] [address] Ranjith Velazquez, DO [address] [facility] [address] [place], [place] [id number] Social History Tobacco Use Types Packs/Day Years [...] Date/Time Associated Diagnosis Comments SURGICAL PATHOLOGY Routine 03/27/2008 0:00 EDT documented in this encounter Results * SURGICAL PATHOLOGY (03/27/2008 0:00 EDT) Pathology Report: SURGICAL PATHOLOGY REPORT ? Reports generated via electronic interface contain original data; ? however they are lacking the format of the original report. ? Caution should be taken when reading/interpreting unformatted reports. ? Name: ? BOB, YESSY ? Accession #: ? [id number] ? : ? 1945 (Age: 63) ??F ? Collect Date: ? 03/27/2008 ? Location: ? [facility] ? Receive Date: ? 03/28/2008 ? Provider: RANJITH VELAZQUEZ DO ? Copy to: ELKE ANG MD ? Final Pathologic Diagnosis: ? A. ?Breast, left, excisional biopsy: ? 1. ?Benign breast tissue with: ? - Dense fibrosis. ? - Apocrine metaplasia. ? - Micro- and macrocyst formation. ? - Moderate epithelial hyperplasia. ?2. ?? Microcalcifications identified in association with benign ? epithelial changes. ? B. ?? Breast, left, adjacent to #1, excisional biopsy: ? 1. ?? Benign breast tissue with: ?- Dense fibrosis. ?- Apocrine metaplasia. ?- Micro- and macrocyst formation. ?- Moderate epithelial hyperplasia. ?2. ?? Microcalcifications identified in association with benign ? epithelial changes. ? Document reviewed and electronically signed by: ? Gene Sigala MD ? Report ??Date: 04/01/2008 15:28 ? By the signature above, the attending physician certifies that he/she has ? personally conducted a gross and/or microscopic examination of the described ? specimens and rendered or confirmed the above diagnosis. ? Specimen(s) Received: ? A. ?L breast ??long suture lateral, short superior (#1) ? B. ? Adjacent to #1 L breast (#2) ? Clinical History: ? Abnormal US UIQ left breast ? Gross Description: ? Received in formalin labelled Bob and left breast bx ??long lateral, ?? short superior is an oriented, machado-yellow to white, fibrofatty tissue which ? weighs 38 grams and measures 5.7 cm medial to lateral, 4.0 cm anterior to ? posterior, and 3.0 cm superior to inferior. ??The specimen is oriented as per the accompanying requisition slip. ??Prior to sectioning, the anterior aspect is ? inked blue, posterior black, superior red, inferior yellow, medial green, and ?? lateral orange. ??Along the medial aspect there is a 2.5 cm in greatest dimension surgical defect. ??Upon sectioning, the cut surfaces are predominantly dense, ? wells-white, firm and fibrous tissue admixed with a minimal amount of surrounding yellow lobulated adipose tissue. ??No definitive nodules are identified. ??The ? specimen is serially sectioned from medial to lateral into nine levels and is ?? entirely submitted as follows: ? BLOCK GUZMAN ? A1-A3 ?Level 1, medial margin, perpendicular sections, serially ? sectioned ? A4-A6 ?Level 2, trisected from posterior to anterior, respectively ? A7-A9 ?Level 3, trisected from posterior to anterior, respectively ? A10-A12 ? Level 4, trisected from superior to inferior, respectively ? A13-A15 ? Level 5, trisected from posterior to anterior, respectively ? A16, A17 ? Level 6, bisected from posterior to anterior, respectively ? A18, A19 ? Level 7, bisected from posterior to inferior, respectively ? A20, A21 ? Level 8, bisected from posterior to anterior, respectively ? A22-A24 ? Level 9, lateral ??margin, perpendicular sections, serially sectioned ? Received in formalin labelled Bob and left breast adjacent to #1 is an ? oriented, machado-yellow to white, fibrofatty tissue which weighs 11 grams and ? measures 3.7 x 3.2 x 1.6 cm. ??There is an undesignated suture on one aspect. ? The region of the suture is inked blue and the remaining specimen is inked ? black. ??Upon sectioning, the cut surfaces are predominantly dense, machado-white, ?? firm and fibrous tissue admixed with a minimal amount of yellow lobulated ? adipose tissue. ??No definitive nodules identified. ??The specimen is serially ? sectioned and entirely submitted as follows: ? BLOCK GUZMAN ? B1 ?End margin, perpendicular section, bisected ? B2 ?Central section ? B3, B4 ?Central section, bisected ? B5, B6 ?Central section, bisected ? B7, B8 ?Central section, bisected ? B9, B10 ?Central section, bisected ? B11-B13 ? Opposing end margin, perpendicular section, serially sectioned ? (MLit Hester)/kmm ? End of Report ? [facility] 03/27/2008 03/28/2008 17: 50 EDT us Ranjith Velazquez DO PATHOLOGY ORDERABLES Fi nal Result Performing Organization Address City/State/[facility] Co de Phone Number [facility] [address] [place] [address] documented in this encounter Visit Diagnoses Not on filedocumented in this encounter
--- OUTSIDE RECORDS SUMMARY | 2024-09-21 06:39 | XMS_ITS | Encounter Summary ---
Author Organization [place] [address] Care Team Providers Care Nursing Faculty Name Role Phone Pham Crocker MD Primary Care Provider [phone] Encounter Details Date Type Department Care Team (Late st Contact Info) Description 01/24/2013 External [place] [address] Leigh Stern APRN [address] [place], [place] [id number] Social History Tobacco Use Types Packs/Day Years [...] Procedure Name Priority Date/Time Associated Diagnosis Comments LAB SCAN Routine 12/14/2012 documented in this encounter Results * Scan Doc: Lab (12/14/2012) Leigh Stern APRN MEDIA MGR SCAN EX T ORDR/RSLT documented in this encounter Visit Diagnoses Not on filedocumented in this encounter Care Teams Nursing Faculty Relationship Specialty Start Date End Date Pham Crocker MD PCP - General 07/21/10 12/21/18 documented as of this encounter
--- OUTSIDE RECORDS SUMMARY | 2024-09-21 06:39 | XMS_ITS | Encounter Summary ---
Author Organization [facility] [place] [address] [place] [address] Care Team Providers Care Group Insurance Special Agent Name Role Phone Leigh Stern APRN Primary Care Provider [phone] Encounter Details Date Type Department Care Team (Late st Contact Info) Description 06/24/2021 Interpretation Only [address] [address] Leigh Stern APRN [address] [place], [place] [id number] Social History Tobacco Use Types Packs/Day Years [...] MAMMO SCREENING CAD AND JASON BILATERAL Routine 06/24/2021 11:20 AM EDT documented in this encounter Results * Mammo Screening Cad and Jason Bilateral (06/24/2021 11:20 AM EDT) PT CLASS O DH RAD ADMITDTTM RAD PT RAD INFO [id number]^BRISTO L^LEIGH RAD EXAM DESC MADDSCTO^BREAST SCREEN TOMOSYNTHESIS [...] who have questions please contact the health human services care specialist that requested your imaging first. ? Electronically signed by: Rajiv Price MD, [facility] ([phone]), at 06/24/2021 2:05 PM Narrative 06/24/2021 2:05 [...] patients who have questions please contactthe health human services care specialist that requested your imaging first. Leigh Stern APRN IMG MAMMO ORDERAB LES documented in this encounter Visit Diagnoses Not on filedocumented in this encounter Care Teams Group Insurance Special Agent Relationship Specialty Start Date End Date Leigh Stern APRN [address] [place] [address] PCP - General Family Medicine 12/22/18 documented as of this encounter
--- OUTSIDE RECORDS SUMMARY | 2024-09-21 06:39 | XMS_ITS | Encounter Summary ---
Author Organization [facility] [place] [address] Care Team Providers Care Project Development Leader Name Role Phone Leigh Stern APRN Primary Care Provider [phone] Encounter Details Date Type Department Care Team (Late st Contact Info) Description 07/12/2023 Interpretation Only [address] [address] Pham Crocker MD [address] [place], [place] [phone] Social History Tobacco Use Types Packs/Day Years [...] Comments MAMMO SCREENING CAD AND JASON BILATERAL ([facility]) STAT 07/11/2023 11:27 AM EST documented in this encounter Results * MAMMO SCREENING CAD AND JASON BILATERAL ([facility]) (07/11/2023 11:27 AM EST) PT CLASS DH RAD ADMITDTTM RAD PT RAD INFO [id number]^Shruthi an^[place]^Ana Cristina RAD EXAM DESC MADDSCTOCH^MG Mammo Screening Bilateral w/ Jason.^RIS RAD Anatomical Region Laterality Modality Other 07/11/2023 11:2 7 AM EST Impressions 07/12/2023 4:04 PM EST BI-RADS Category 1: Negative RECOMMENDATION: Routine mammography screening * ??Regular screening mammograms starting at age 40 reduces the risk of from breast cancer. * ??Yearly screening provides the most benefit. Women should discuss with their provider their preferred breast cancer screening schedule. * ??Women should report any breast changes to a health care provider right away. * ??Some women, because of their family history, a genetic tendency, or other factors, should be screened with annual breast MRI as well as with mammograms. Thank you for letting us participate in the care of this patient. ??If you are a health care provider and have any questions regarding this report, please contact the number below. ??For patients who have questions please contact the health health care facility administrator that requested your imaging first. ? Narrative 07/12/2023 4:04 PM EST EXAMINATION: MG Mammo Screening Bilateral w/ Jason. REASON FOR EXAM: Screening Family history of breast cancer: Mother, sister, grandmother Reproductive history: Parous No personal history of breast cancer. COMPARISON: Previous mammograms were reviewed. TECHNIQUE: ??CC and MLO views were obtained of BOTH breasts. 2D and 3D tomosynthesis images were obtained. Computer aided detection was used FINDINGS: There are no suspicious microcalcifications, masses, or areas of distortion. No changes compared to prior studies. Breast density: The breasts are extremely dense, which lowers the sensitivity of mammography. Procedure Note Rajiv Price MD - 07/12/2023 EXAMINATION: MG Mammo Screening Bilateral w/ Jason. REASON FOR EXAM: Screening Family history of breast cancer: Mother, sister, grandmother Reproductive history: Parous No personal history of breast cancer. COMPARISON: Previous mammograms were reviewed. TECHNIQUE: CC and MLO views were obtained of BOTH breasts. 2D and 3D tomosynthesis images were obtained. Computer aided detection was used FINDINGS: There are no suspicious microcalcifications, masses, or areasof distortion. No changes compared to prior studies. Breast density: The breasts are extremely dense, which lowers thesensitivity of mammography. IMPRESSION BI-RADS Category 1: Negative RECOMMENDATION: Routine mammography screening * Regular screening mammograms starting at age 40 reduces the risk ofdeath from breast cancer. * Yearly screening provides the most benefit. Women should discuss withtheir provider their preferred breast cancer screening schedule. * Women should report any breast changes to a health care provider rightaway. * Some women, because of their family history, a genetic tendency, orother factors, should be screened with annual breast MRI as well as withmammograms. Thank you for letting us participate in the care of this patient. If youare a health care provider and have any questions regarding this report,please contact the number below. For patients who have questions please contactthe health health care facility administrator that requested your imaging first. Pham Crocker MD PACS IMAGES documented in this encounter Visit Diagnoses Not on filedocumented in this encounter Care Teams Project Development Leader Relationship Specialty Start Date End Date Leigh Stern APRN [address] [place] [address] PCP - General Family Medicine 12/22/18 documented as of this encounter
--- OUTSIDE RECORDS SUMMARY | 2024-09-21 06:39 | XMS_ITS | Encounter Summary ---
Author Organization [facility] Address [facility] [place] [address] Care Team Providers Care Contract Forester Name Role Phone Pham Crocker MD Primary Care Provider [phone] Reason for Visit * Reason Comments Thyroid Cancer Encounter Details Date Type Department Care Team (Late st Contact Info) Description 09/18/2015 11:20 AM EST Office [place] [address] Bossman Bullard MD [facility] [place] [address] Thyroid cancer Social History Tobacco Use Types [...] Sign Reading Time Taken Comments Blood Pressure 155/45 09/18/2015 11:15 AM EST Pulse 61 09/18/2015 11:15 AM EST Temperature - - Respiratory Rate - - Oxygen Saturation - - Inhaled Oxygen Concentration - - Weight 90.7 kg (200 lb) 09/18/2015 11:15 AM EST Height - - Body Mass Index - - documented in this encounter Progress Notes * Bossman Bullard MD - 09/18/2015 11:49 AM EST Subjective: Patient ID: Bing Rojas is a 70 y.o. 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 See below for history of the PTC that was first operated on with a thyroidectomy in 2006, has had radioactive iodine ablation, and has had an undetectable thyroglobulin since. Generally feeling well, no complaints. Takes levothyroxine 88 mcg a day first thing in the morning on an empty stomach with water. . HPI HPI--Pathologic Diagnosis---2006 ? Specimen:? Thyroid gland, total thyroidectomy. ? Histologic type:? Papillary thyroid carcinoma, multifocal. ? 1 - 0.85 cm, left lobe (linear measure, A14). ? 2 - 0.20 cm, isthmus (A29). ? 3 - 0.10 cm, right lobe (A33). ? Extrathyroidal invasion:? Not identified. ? Regional lymph nodes:? N/A ? Vascular/lymphatic invasion: Vascular invasion is present (A14). ? Tumor Necrosis:? Not identified. ? Nuclear pleomorphism:? Mild. ? Mitotic Rate:? Nil. ? TNM STAGING:? pT1(m) NX MX (AJCC, 6th ed., 2003) ? Other:? Multinodular hyperplasia with dominant 3.0-cm ? left lobe nodule.?? Focal scarring and ? dystrophic calcification. ? Correlation with FNA, [id number]. ? CR-0 Had FRANKLIN ablation. Review of Systems Objective: Physical Exam Constitutional: She is oriented to person, place, and time. She appears well- developed and well-nourished. Neck: No thyromegaly present. Lymphadenopathy: She has no cervical adenopathy. Neurological: She is alert and oriented to person, place, and time. Psychiatric: She has a normal mood and affect. Her behavior is normal. Thought content normal. BP 155/45 mmHg Pulse 61 Wt 90.719 kg (200 lb) Assessment and Plan: Recent Results (from the past 24 hour(s)) TSH Result Value Ref Range TSH 0.45 0.27 - 4.20 mcIU/mL I am assuming that Bing Zhang's thyroglobulin level is going to be undetectable; if it is, I told her that she most likely is cured. I suggested that she not see me in followup, but could be followed up by her primary care physician, Dr. Crocker. She will need to get a TSH yearly, but then also a thyroglobulin and a thyroglobulin antibody may be every two years. Greater than 20 of the 25-minute appointment was spent in [id number] discussion concerning future followup. documented in this encounter Plan of Treatment Not on file documented as of this encounter Visit Diagnoses Diagnosis Thyroid cancer Malignant neoplasm of thyroid gland documented in this encounter Care Teams Contract Forester Relationship Specialty Start Date End Date Pham Crocker MD PCP - General 07/21/10 12/21/18 documented as of this encounter
--- OUTSIDE RECORDS SUMMARY | 2024-09-21 06:39 | XMS_ITS | Encounter Summary ---
Author Organization [facility] Address [facility] [place] [address] Care Team Providers Care Hi Ranger Operator Name Role Phone Leigh Stern APRN Primary Care Provider [phone] Encounter Details Date Type Department Care Team (Late st Contact Info) Description 07/01/2021 Interpretation Only [address] [address] Rajiv Price MD [facility] [place] [address] Social History Tobacco Use Types Packs/Day Years [...] Date/Time Associated Diagnosis Comments MAMMO DIAGNOSTIC CAD AND JASON UNILATERAL Routine 07/01/2021 10:34 AM EDT documented in this encounter Results * Mammo Diagnostic CAD and Jason Unilateral (07/01/2021 10:34 AM EDT) PT CLASS O DH RAD ADMITDTTM DH RAD PT DH RAD INFO [id number]^VIAZME NSKI^RAJIV DH RAD EXAM DESC MADDBITOU^MAMMO TOMOSYNTHESIS DIAG UNI^RIS RAD Anatomical Region Laterality Modality Breast Other Impressions 07/01/2021 10:53 AM EDT BI-RADS Category 2. Benign findings. RECOMMENDATION: Return to routine screening. Thank you for letting us participate in the care of this patient. ??If you are a health care provider and have any questions regarding this report, please contact the number below. ??For patients who have questions please contact the health ambulatory care coordinator that requested your imaging first. ? Electronically signed by: Rajiv Price MD, [facility] ([phone]), at 07/01/2021 10:53 AM Narrative 07/01/2021 10:53 [...] patients who have questions please contactthe health ambulatory care coordinator that requested your imaging first. Rajiv Price MD PACS IMAGES documented in this encounter Visit Diagnoses Not on filedocumented in this encounter Care Teams Hi Ranger Operator Relationship Specialty Start Date End Date Leigh Stern APRN [address] [place] [address] PCP - General Family Medicine 12/22/18 documented as of this encounter
--- OUTSIDE RECORDS SUMMARY | 2024-09-21 06:40 | XMS_ITS ---
Author Organization [facility] Address [address], [place] [id number] Care Team Providers Care [employer] Name Role Phone Pham Crocker Primary Care Provider Pham Crocker MD Unavailable Unavailable Allergies Allergen (clinical drug ingredient) Drug/Non Drug Allergy documented on EMR Reaction Allergy Type Onset Date Status Polyglycolic acid sutures (uncoded) blisters Allergy Active Niacin flushing Drug Allergy Active REASON FOR VISIT Preop Cataract sx [facility] 09/1409/11/24 Dr Burgess Medications Medication SIG (Take, Route, Frequency, Duration) Notes Start Date End Date Status Nitroglycerin 0.4 MG 1 tablet under the tongue and allow to dissolve as needed Sublingual prn for 30 days Active hydroCHLOROthiazide 12.5 MG 1 tablet in the morning Orally Once a day for 90 days Active Atorvastatin Calcium 80 MG 1 tablet Oral ly Once a day for 90 days Active Lisinopril 40 MG 1 tablet Orally Once a day for 90 days Active Levothyroxine Sodium 88 MCG 1 tablet on an empty stomach in the morning Orally Once a day for 90 days Active Multivitamins OTC as directed Orally Active Calcium Active Vitamin D 1000 UNIT 1 tablet Orally Once a day for 30 days 07/14/2022 Active Aspirin 81 MG 1 tablet Orally Once a day Active Acetaminophen 500 MG 2 capsules Orally e very 6 hrs Active Social History Tobacco Use: Social History Observation Description Date Details (start date - stop date) Former Smoker NA - NA Sex Assigned At : Social History Observation Description Sex Assigned At Female OTHER TOBACCO USE: Question Answer Notes Are you an other tobacco user? No Tobacco Control (Standard) Question Answer Notes Tobacco use: Former smoker Section Notes: Quit smoking >10 yrs ago Vital Signs Temperature 97.1 degrees Fahrenheit 09/03/19 25 Heart Rate 55 BPM 09/03/2024 Respiratory Rate 16 /min 09/03/2024 Blood pressure systolic 140 mmHg 09/03/19 25 Blood pressure diastolic 70 mmHg 025 Oximetry 97 % 09/03/2024 Height 61 in 09/03/2024 Weight 189.8 lbs 09/03/2024 BMI 35.86 kg/m2 09/03/2024 Encounters Encounter Location Date Provider Diagnosis [address] [id number] 09/03/2024 Pham Crocker Preoperative examin ation Z01.818 ; Essential hypertension I10 ; Hypothyroidism, unspecified E03.9 and Hyperlipidemia, unspecified hyperlipidemia type E78.5 Assessments Encounter Date Diagnosis (ICD Code) Assessment Notes Treatment Notes Treatment Clinical Notes Section Notes 09/03/2024 Preoperative examination (ICD-10 - Z01.818) She is medically cleared for cataract surgery. It is a low-risk surgery in a patient with low cardiopulmonary risk. Blood pressure, lipids and hypothyroidism all are well controlled. 09/03/2024 Essential hypertension (ICD-10 - I10) She is medically cleared for cataract surgery. It is a low-risk surgery in a patient with low cardiopulmonary risk. Blood pressure, lipids and hypothyroidism all are well controlled. 09/03/2024 Hypothyroidism, unspecified (ICD-10 - E03.9) She is medicall y cleared for cataract surgery. It is a low-risk surgery in a patient with low cardiopulmonary risk. Blood pressure, lipids and hypothyroidism all are well controlled. 09/03/2024 Hyperlipidemia, unspecified hyperlipidemia type (ICD-10 - E78.5) She is medically cleared for cataract surgery. It is a low-risk surgery in a patient with low cardiopulmonary risk. Blood pressure, lipids and hypothyroidism all are well controlled. Plan Of Treatment Next Appt Details Follow Up: prn, Reason: Progress Notes * Bing ROJAS LouDOB: (79 yo F)Acc No.[id number]:09/03/2024 Patient:Bing FRANCIS Provider:?Pham Crocker M.D. :1945???Age:79 Y???Sex:Female D ate:09/03/2024 Address: [address], [id number] Subjective: * Chief Complaints: * ???Preop Cataract sx [facility] 09/11/24 Dr Burgess * HPI: ???INTERIM HISTORY::? The patient is a 79-year-old female who is scheduled to undergo bilateral cataract surgery on 09/14/24 and 09/21/[address] Burgess at [facility], here today for a preop evaluation. She has had no complications with prior surgeries other than an apparent reaction to polyglycolic acid suture with a lipoma excision.?No anesthesia reactions or hemorrhage. She denies any chest pain, pressure or shortness of breath. [place] walks about 20 [place]. ???REQUIRED DATA::?ADVANCE DIRECTIVE:?Does the patient have an Advance Directive?Does [facility] have a copy of the Advance Directive on file?Was the patient offered the Advance Directive paperwork to create one?Was the importance of having an Advance Directive on file with PCP explained to the patient?? * ROS:?Pre-Procedure::?Allergy to Latex?? , No.?Allergy to Iodine??No.?Allergy to Adhesive Tape?? , No.? * Medical History:? * Surgical History:?Lipoma rem oval L lateral dorsal back with healing problem due to stitch reaction 04/11/12Total thyroidectomy 04/20/07Placement of wire and excision of L breast mass 03/27/08Bx of tongue - hyperplasia 11/02/11Shave bx of labia - atypical nevus 12/18/10unionectomy R foot 12/06/12Right hand, trigger finger release at 07/[id number] and L5-S1 laminotomy and medial facetectomies. 2013[facility] Bilateral tubal ligation Uterine fibroidectomy * Hospitalization/Major Diagno stic Procedure:?None * Family History:?Mother: Dece ased in 80s.?Father: in 80s, [place].?Son(s): sudden cardiac in his 40s.?Brother: alive.?Sister: Sis 1: d. sudden age 72. Sis 2: [employer]. Sis 3: [employer].?Maternal Grandmother: unknown.? * Social History:?TOBACCO USE:?Tobacco Control (Standard)?Tobacco use:?Former smoker ?OTHER TOBACCO USE?Are you an other tobacco user??No ?SMOKING STATUS?Date Last Reviewed/Updated?07/26/2016 ???Quit smoking >10 yrs ago. * Medications:?TakingAcetamino phen 500 MG Capsule 2 capsules Orally every 6 hrs Aspirin 81 MG Tablet 1 tablet Orally Once a day Calcium Multivitamins OTC Capsule as directed Orally Vitamin D 1000 UNIT Tablet 1 tablet Orally Once a day hydroCHLOROthiazide 12.5 MG Tablet 1 tablet in the morning Orally Once a day Nitroglycerin 0.4 MG Tablet Sublingual 1 tablet under the tongue and allow to dissolve as needed Sublingual prn Lisinopril 40 MG Tablet 1 tablet Orally Once a day Atorvastatin Calcium 80 MG Tablet 1 tablet Orally Once a day Levothyroxine Sodium 88 MCG Tablet 1 tablet on an empty stomach in the morning Orally Once a day Medication List reviewed and reconciled with the patientTaking Acetaminophen 500 MG Capsule 2 capsules Orally every 6 hrs Taking Aspirin 81 MG Tablet 1 tablet Orally Once a day Taking Calcium Taking Multivitamins OTC Capsule as directed Orally Taking Vitamin D 1000 UNIT Tablet 1 tablet Orally Once a day Taking hydroCHLOROthiazide 12.5 MG Tablet 1 tablet in the morning Orally Once a day Taking Nitroglycerin 0.4 MG Tablet Sublingual 1 tablet under the tongue and allow to dissolve as needed Sublingual prn Taking Lisinopril 40 MG Tablet 1 tablet Orally Once a day Taking Atorvastatin Calcium 80 MG Tablet 1 tablet Orally Once a day Taking Levothyroxine Sodium 88 MCG Tablet 1 tablet on an empty stomach in the morning Orally Once a day Medication List reviewed and reconciled with the patient * Allergies:?Niacin: flushing - AllergyPolyglycolic acid sutures: blisters - Allergyno[Allergies Verified] Objective: * Vitals:?Temp: 97.1 F, HR:55B PM, RR: 16 /min, BP:140/70mmHg, Oxygen Sat: 97 %, Height: 61 in, Weight: 189.8 lbs, BMI: 35.86 Index, [id number]. * Examination: ???General Examination: ?GENERAL APPEARANCE:?pleasant, in no acute distress.?EYES:?pupils equal, round, reactive to light, extraoccular motions intact..?ORAL CAVITY:?pink, moist without lesions.?HEART:?Regular rate and rhythm without murmur .?LUNGS:?clear in all syed.?EXTREMITIES:?pink, warm, without edema. Strong PT pulses.? Assessment: * Assessment: 1.?Preoperative examination - Z01.818 (Primary)???2.?Essential hypertension - I10???3.?Hypothyroidism, unspecified - E03.9???4.?Hyperlipidemia, unspecified hyperlipidemia type - E78.5??? She is medically cleared for cataract surgery. It is a low-risk surgery in a patient with low cardiopulmonary risk.? Blood pressure, lipids and hypothyroidism all are well controlled. Plan: * Treatment: * Procedure Codes:?[id number] COUNTS INCLUDE 234 BEDS AT THE [facility] VISIT ESTABLISHED PATIENT * Follow Up:?prn * * Sign off status: Completed true * Provider:?Pham Crocker M.D. Date:?09/03/19 25 Generated for Karyn villanueva/Zeyad/eTransmitting on:?09/21/2024 06:39 AM EST History and Physical Notes * HPI (History of Present Illness) Category Sub-Category Detail Notes Category Not es REQUIRED DATA: ADVANCE DIRECTIVE: Does the karen ent have an Advance Directive?: Does [facility] have a copy of the Advance Dir ective on file?: Was the patient offered the Advance Dire ctive paperwork to create one?: Was the importance of having an Advance Directive on file with PCP explained to the patient?: Examination Category Sub-Category Detail Notes Category Not es General Examination GENERAL APPEARANCE: pleasant, in n o acute distress EYES: pupils equal, round, reactive to light, extraoccular motions intact. HEART: Regular rate and rhy thm without murmur LUNGS: clear in all syed EXTREMITIES: pink, warm, without edema. Strong PT pulses ORAL CAVITY: pink, moist without lesions
--- OUTSIDE RECORDS SUMMARY | 2024-09-21 06:40 | XMS_ITS ---
Author Organization [facility] Address [address], [place] [id number] Care Team Providers Care Fleet Sales Manager Name Role Phone Pham Crocker Primary Care Provider [phone] Pham Crocker MD Unavailable Unavailable Allergies Allergen (clinical drug ingredient) Drug/Non Drug Allergy documented on EMR Reaction Allergy Type Onset Date Status Polyglycolic acid sutures (uncoded) blisters Allergy Active Niacin flushing Drug Allergy Active Results Component Value Reference Range Notes IRON TOTAL Reviewed date:09/07/2024 11:10:19 AM Interpretation: Performing Lab:[facility], [employer] [id number] Teresa Silva M.D. Notes/Report: NON-FASTING NON-FASTING Received Date: IRON, TOTAL 64 45-160 mcg/dL CBC WITH DIFF Reviewed date:09/07/2024 11:10:19 AM Interpretation: Performing Lab:NL1, [employer] [address] Teresa Silva M.D. Notes/Report: Received Date: NON-FASTING NON-FASTING WHITE BLOOD CELL COUNT 7.5 3.8-10.8 Thousand/ uL RED BLOOD CELL COUNT 3.98 3.80-5.10 Million/uL HEMOGLOBIN 12.1 11.7-15.5 g/dL HEMATOCRIT 36.9 35.0-45.0 % MCV 92.7 80.0-100.0 fL MCH 30.4 27.0-33.0 pg MCHC 32.8 32.0-36.0 g/dL For adults, a slight decrease in the calculated MCHC value (in the range of 30 to 32 g/dL) is most likely not clinically significant; however, it should be interpreted with caution in correlation with other red cell parameters and the patient's clinical condition. RDW 14.1 11.0-15.0 % PLATELET COUNT 252 140-400 Thousand/uL MPV 10.7 7.5-12.5 fL ABSOLUTE NEUTROPHILS 4748 [id number] cells/uL ABSOLUTE LYMPHOCYTES [phone] cells/uL ABSOLUTE MONOCYTES 668 200-950 cells/uL ABSOLUTE EOSINOPHILS 68 15-500 cells/uL ABSOLUTE BASOPHILS 23 0-200 cells/uL NEUTROPHILS 63.3 LYMPHOCYTES 26.6 MONOCYTES 8.9 EOSINOPHILS 0.9 BASOPHILS 0.3 REASON FOR VISIT Annual Wellness Visit, Get up and Go, TDAP, Shingrix Medications Medication SIG (Take, Route, Frequency, Duration) Notes Start Date End Date Status Vitamin B12 100 MCG as directed Orally Active Lisinopril 40 MG 1 tablet Orally Once a day for 90 days Active Nitroglycerin 0.4 MG 1 tablet under the tongue and allow to dissolve as needed Sublingual prn for 30 days Active Levothyroxine Sodium 88 MCG 1 tablet on an empty stomach in the morning Orally Once a day for 90 days Active Atorvastatin Calcium 80 MG 1 tablet Oral ly Once a day for 90 days Active Aspirin 81 MG 1 tablet Orally Once a day Active Multivitamins OTC as directed Orally Active Calcium Active hydroCHLOROthiazide 12.5 MG 1 tablet in the morning Orally Once a day for 90 days Active Vitamin D 1000 UNIT 1 tablet Orally Once a day for 30 days 07/14/2022 Active Acetaminophen 500 MG 2 capsules Orally [...] 189.8 lbs 09/03/2024 BMI 35.86 kg/m2 09/03/2024 Procedures Procedure Date Ordered Date Performed Result Body Sit e GET UP AND GO TEST 09/03/2024 09/03/2024 passed Encounters Encounter Location Date Provider Diagnosis [address] [address] 09/03/2024 Pham Crocker Encounter for annua l wellness visit (AWV) in Medicare patient Z00.00 ; Essential hypertension I10 ; Hyperlipidemia, unspecified hyperlipidemia type E78.5 ; Hypothyroidism, unspecified E03.9 ; Osteopenia, unspecified location M85.80 ; Anemia D64.9 and Seborrheic keratoses L82.1 Assessments Encounter Date Diagnosis (ICD Code) Assessment Notes Treatment Notes Treatment Clinical Notes Section Notes 09/03/2024 Encounter for annual wellness visit (AWV) in Medicare patient (ICD-10 - Z00.00) Blood pressure , cholesterol and hypothyroidism are all well controlled. She gives a history of anemia when trying to give blood and we will check on that today. Reassured regarding the seborrheic keratosis. Encouraged her to get Tdap and Shingrix at the pharmacy. Regarding the lip issue, there is a little to see today. She will try avoiding fluoride-containi ng toothpaste and keeping a log of foods that may flare the symptoms. It would be helpful if she stops using Vaseline for a few days, so that I could see the peeling when it is prominent. 09/03/2024 Essential hypertension (ICD-10 - I10) Blood pressure, cholesterol and hypothyroidism are all well controlled. She gives a history of anemia when trying to give blood and we will check on that today. Reassured regarding the seborrheic keratosis. Encouraged her to get Tdap and Shingrix at the pharmacy. Regarding the lip issue, there is a little to see today. She will try avoiding fluoride-containi ng toothpaste and keeping a log of foods that may flare the symptoms. It would be helpful if she stops using Vaseline for a few days, so that I could see the peeling when it is prominent. 09/03/2024 Hyperlipidemia, unspecified hyperlipidemia type (ICD-10 - E78.5) Blood pressure, cholesterol and hypothyroidism are all well controlled. She gives a history of anemia when trying to give blood and we will check on that today. Reassured regarding the seborrheic keratosis. Encouraged her to get Tdap and Shingrix at the pharmacy. Regarding the lip issue, there is a little to see today. She will try avoiding fluoride-containi ng toothpaste and keeping a log of foods that may flare the symptoms. It would be helpful if she stops using Vaseline for a few days, so that I could see the peeling when it is prominent. 09/03/2024 Hypothyroidism, unspecified (ICD-10 - E03.9) Blood pressure, cholesterol and hypothyroidism are all well controlled. She gives a history of anemia when trying to give blood and we will check on that today. Reassured regarding the seborrheic keratosis. Encouraged her to get Tdap and Shingrix at the pharmacy. Regarding the lip issue, there is a little to see today. She will try avoiding fluoride-containi ng toothpaste and keeping a log of foods that may flare the symptoms. It would be helpful if she stops using Vaseline for a few days, so that I could see the peeling when it is prominent. 09/03/2024 Osteopenia, unspecified location (ICD-10 - M85.80) Blood pressure, cholesterol and hypothyroidism are all well controlled. She gives a history of anemia when trying to give blood and we will check on that today. Reassured regarding the seborrheic keratosis. Encouraged her to get Tdap and Shingrix at the pharmacy. Regarding the lip issue, there is a little to see today. She will try avoiding fluoride-containi ng toothpaste and keeping a log of foods that may flare the symptoms. It would be helpful if she stops using Vaseline for a few days, so that I could see the peeling when it is prominent. 09/03/2024 Anemia (ICD-10 - D64.9) Blood pressure, cholesterol and hypothyroidism are all well controlled. She gives a history of anemia when trying to give blood and we will check on that today. Reassured regarding the seborrheic keratosis. Encouraged her to get Tdap and Shingrix at the pharmacy. Regarding the lip issue, there is a little to see today. She will try avoiding fluoride-containi ng toothpaste and keeping a log of foods that may flare the symptoms. It would be helpful if she stops using Vaseline for a few days, so that I could see the peeling when it is prominent. 09/03/2024 Seborrheic keratoses (ICD-10 - L82.1) Blood pressure, cholesterol and hypothyroidism are all well controlled. She gives a history of anemia when trying to give blood and we will check on that today. Reassured regarding the seborrheic keratosis. Encouraged her to get Tdap and Shingrix at the pharmacy. Regarding the lip issue, there is a little to see today. She will try avoiding fluoride-containi ng toothpaste and keeping a log of foods that may flare the symptoms. It would be helpful if she stops using Vaseline for a few days, so that I could see the peeling when it is prominent. Plan Of Treatment Next Appt Details Follow Up: 1 Year, Reason: A [place] Progress Notes * Bing ROJASOB: 6 (79 yo F)Acc No.[id number]:09/03/2024 Progress Note Patient:?Bing ROJAS Provider:?Pham Crocker M.D. :1945???Age:79 Y???Sex:Female D ate:09/03/2024 Address:[id number] Subjective: * Chief Complaints: * ???Annual Wellness VisitGet up and Go, TDAP, Shingrix * HPI: ???INTERIM HISTORY::? The patient is a 79-year-old female here today for AWV. Blood pressure is well controlled on current medications. She is due for Tdap and Shingrix. She is up-to-date on mammogram and colonoscopy. She had DEXA in 2021, which showed osteopenia. She is taking vitamin D and multivitamins. She is eating iron-rich foods for low iron. she has been turned down for blood donation last month. She walks about 15-20 minutes daily. She has been having dryness of her lips with cracking and peeling for about 6 months and has to use Vaseline daily to avoid dryness. She feels it is triggered by certain foods such as tomatoes. She stopped using lipstick many years ago due to burning sensation on her lips. She is concerned about some skin lesions on her back and would like to have them examined today. ???TURTLE M[place]AIN OF CARE::?Other Providers:?Has the patient seen any providers outside of [facility] since their last appointment with us??No ???T[place] OF CARE::?T[place] OF CARE?Ruby of Care reviewed??Yes . ???REQUIRED DATA::?ADVANCE DIRECTIVE:?Does the patient have an Advance Directive??Yes . ?Does [facility] have a copy of the Advance Directive on file??Yes . ?Was the patient offered the Advance Directive paperwork to create one??Not applicable ?Was the importance of having an Advance Directive on file with PCP explained to the patient??Not applicable ?Date Advanced Directive was last addressed with patient:?09/03/2024 ?HEALTH LITERACY:?How often do you need to have someone help when you read instructions, pamphlets or other materials from your doctor or pharmacy??1-Never ?Date of health literacy screening:?09/03/2024 ?OPIOID SCREENING?Does the patient have a current opioid prescription??No . ???MENTAL HEALTH::?MINI MENTAL STATUS:?Immediate Recall Beverley, Chair, Hand (2 trials even if correct)?. ?Delayed Recall several minutes later with no cue?. ?Draw the face of a clock showing all 12 numbers?. ?Draw the time to be ten minutes past eleven.?. ???Depression Screening:?PHQ-2 (2015 Edition)?Little interest or pleasure in doing things??Not at all ?Feeling down, depressed, or hopeless??Not at all ?Total Score?0 ???PREVENTIVE MEDICINE::?DENTAL SCREENING:?Does the patient receive routine dental care??No ?VISION SCREENING:?Does the patient receive routine eye exams??Yes ?Where does the patient go for routine eye care??Dr Burgess ???DIET/EXERCISE::?DIET:?Do you follow a particular diet??No patient follows a regular diet ?EXERCISE:?Do you currently exercise??No ?FOOD INSECURITY QUESTIONS?In the last 12 months, I worried whether my food would run out before I got money to buy more.?Never true ?In the last 12 months, the food that I bought just didn't last, and I didn't have money to get more.?Never true ?In the last 12 months, I couldn't afford to eat balanced meals.?Never true ?Do you receive any type of supplemental food assistance??No ???A CHECKLIST FOR YOUR MEDICARE ANNUAL WELLNESS VISIT::?AWV QUESTIONNAIRE:?During the past 4 weeks, how much have you been bothered by emotional problems such as feeling anxious, depressed, irritable, sad or downhearted and blue??Not at all . ?During the past 4 weeks, has your physical and emotional health limited your social activities with family, friends, neighbors or groups??Not at all . ?During the past 4 weeks, how much bodily pain have you generally had??No pain . ?During the past 4 weeks, was someone available to help you if you needed and wanted help??Yes, as much as I wanted . ?During the past 4 weeks, what was the hardest physical activity you could do for at least 2 minutes??Moderate . ?Can you get places out of walking distance without help??Yes . ?Can you shop for groceries or clothes without help??Yes . ?Can you prepare your own meals??Yes . ?Can you do your own housework without help??Yes . ?Can you handle your own money without help??Yes . ?Do you need help eating, bathing, dressing or getting around your home??No . ?During the past 4 weeks, how would you rate your health in general??Very good . ?How have things been going for you during the past 4 weeks??Very well, could hardly be better . ?Are you having difficulties driving your car??No . ?Do you always fasten your seat belt when you are in a car??Yes, sometimes . ?How often during the past 4 weeks have you been bothered by a fall or feeling dizzy when standing up??Never . ?How often during the past 4 weeks have you been bothered by sexual problems??Never . ?How often during the past 4 weeks have you been bothered by trouble eating well??Never . ?How often during the past 4 weeks have you been bothered by teeth or dentures??Never . ?How often during the past 4 weeks have you been bothered by problems using the telephone??Never . ?How often during the past 4 weeks have you been bothered by feeling tired or fatigued??Never . ?Have you fallen 2 or more times in the past year??No . ?Are you afraid of falling??No . ?Are you a smoker??No . ?During the past 4 weeks, how many drinks of wine, beer or other alcoholic beverages did you have??No alcohol at all . ?Did you exercise for about 20 minutes 3 or more days a week??No, I usually don't exercise this much . ?Have you been given any information to help you with hazards in your house that might hurt you??Yes . ?Have you been given any information to help you with keeping track of your medications??Yes . ?How often do you have trouble taking medicines the way you have been told to take them??I always take them as prescribed . ?How confident are you that you can control and manage most of your health problems??Very confident . * ROS:?Pertinent positives and negatives noted in HPI. * Medical History:? * Surgical History:?Lipoma rem oval L lateral dorsal back with healing problem due to stitch reaction 04/11/12Total thyroidectomy 04/20/07Placement of wire and excision of L breast mass 03/27/08Bx of tongue - hyperplasia 11/02/11Shave bx of labia - atypical nevus 12/18/10unionectomy R foot 12/06/12Right hand, trigger finger release at [id number]/[id number] and L5-S1 laminotomy and medial facetectomies. 2013TA[facility] Bilateral tubal ligation Uterine fibroidectomy * Hospitalization/Major Diagno stic Procedure:?None * Family History:?Mother: dece ased.?Father: 80 yrs, [place].?Son(s): , sudden cardiac in his 40s.?Brother: alive.?Sister: Sis 1: d. sudden age 72. Sis 2: [employer]. Sis 3: [employer].?Maternal Grandmother: unknown 80 yrs.? Father heart trouble of heart issue, 80s Sister couple years ago heart attack and , 70 mom of old age, 80s maternal grandmother lived into 80s grandfather heike had a heart attack in his sleep paternal grandmother lived until late 70s or 80s. * Social History:?TOBACCO USE:?Tobacco Control (Standard)?Tobacco use:?Former smoker ?OTHER TOBACCO USE?Are you an other tobacco user??No ???Quit smoking >10 yrs ago. * Medications:?TakingVitamin B 12 100 MCG Tablet as directed Orally Acetaminophen 500 MG Capsule 2 capsules Orally [...] List reviewed and reconciled with the patientTaking Vitamin B12 100 MCG Tablet as directed Orally Taking Acetaminophen 500 MG Capsule 2 capsules Orally [...] equal, round, reactive to light, extraoccular motions intact..?EARS:?TMs lucent bilaterally with normal landmarks. No cerumen. .?ORAL CAVITY:?Lotsee, moist without lesions.?NECK/THYROID:?no submandibular or anterior cervical adenopathy.?HEART:?Regular rate and rhythm without murmur .?LUNGS:?clear in all syed.?SKIN:?No concerning nevi.?Multiple SKs on the back. No visible rash or lesions of the lips.?NEUROLOGIC:?alert and oriented, normal gait.?MUSCULOSKELETAL:?moves with ease to exam table.?EXTREMITIES:?pink, warm, without edema.?PERIPHERAL PULSES:?strong PT bilaterally.? Assessment: * Assessment: 1.?Encounter for annual well ness visit (AWV) in Medicare patient - Z00.00 (Primary)???2.?Essential hypertension - I10???3.?Hyperlipidemia, unspecified hyperlipidemia type - E78.5???4.?Hypothyroidism, unspecified - E03.9?? 5.?Osteopenia, unspecified location - M85.80???6.?Anemia - D64.9???7.?Seborrheic keratoses - L82.1??? Blood pressure, cholesterol and hypothyroidism are all well controlled. She gives a history of anemia when trying to give blood and we will check on that today. Reassured regarding the seborrheic keratosis. Encouraged her to get Tdap and Shingrix at the pharmacy. Regarding the lip issue, there is a little to see today. She will try avoiding fluoride-containing toothpaste and keeping a log of foods that may flare the symptoms. It would be helpful if she stops using Vaseline for a few days, so that I could see the peeling when it is prominent. Plan: * Treatment: 2.?Anemia?LAB: IRON TOTAL (Collection Date & Time - 09/03/2024 12:07 PM) ?LAB: CBC WITH DIFF (Collection Date & Time - 09/03/2024 12:07 PM) * Procedure Codes:?G0468 [facility] VISIT [id number] PHYSICAL MEDICINE [id number] ANNUAL WELLNESS SUBSEQUENT [id number] VENIPUNCTURE IH * Follow Up:?1 Year (Reason: A [place]) * * Sign off status: Completed true * Provider:?Pham Crocker M.D. Date:?09/03/19 Generated for Karyn villanueva/Zeyad/Jaroditting on:?09/21/2024 06:40 AM EST History and Physical Notes * HPI (History of Present Illness) Category Sub-Category Detail Notes Category Not es [place] OF CARE: Other Providers: Has the patient seen any providers outside of [facility] since their last appointment with us?: No REQUIRED DATA: ADVANCE DIRECTIVE: Does the karen ent have an Advance Directive?: Yes . Does [facility] have a copy of the Advance Dir ective on file?: Yes . Was the patient offered the Advance Directive paperwork to create one?: Not applicable Was the importance of having an Advance Directive on file with PCP explained to the patient?: Not applicable Date Advanced Directive was last address ed with patient:: 09/03/2024 HEALTH LITERACY: How often do you nee d to have someone help when you read instructions, pamphlets or other materials from your doctor or pharmacy?: 1-Never ?Date of health literacy screening:: 01/2025 OPIOID SCREENING Does the patient have a current opioid prescription?: No . DIET/EXERCISE: EXERCISE: Do you currently exercise?: No DIET: Do you follow a part icular diet?: No patient follows a regular diet FOOD INSECURITY QUESTIONS In the last 12 months, I worried whether my food would run out before I got money to buy more. : Never true In the last 12 months, the f ood that I bought just didn't last, and I didn't have money to get more.: Never true In the last 12 months, I couldn't afford to eat balanced meals. : Never true Do you receive any type of supplemental food assistance?: No PREVENTIVE MEDICINE: DENTAL SCREENING: Does the patient receive routine dental care?: No VISION SCREENING: Does the patient receive routi ne eye exams?: Yes Where does the patient go for routine ey e care?: Dr Burgess TURT[place] MOUNTAIN OF CARE: [place] OF CARE Ruby of Care reviewed?: Y es . MENTAL HEALTH: MINI MENTAL STATUS: Immediate Re call Beverley, Chair, Hand (2 trials even if correct): . Delayed Recall several minutes later wit h no cue: . Draw the face of a clock showing all 12 numbers: . Draw the time to be ten minutes past rocco marielena. : . A CHECKLIST FOR YOUR MEDICAR E ANNUAL WELLNESS VISIT: AWV QUESTIONNAIRE: During the past 4 weeks, how much have you been bothered by emotional problems such as feeling anxious, depressed, irritable, sad or downhearted and blue?: Not at all . During the past 4 weeks, has your physical and emotional health limited your social activities with family, friends, neighbors or groups?: Not at all . During the past 4 weeks, how much bodily pain have you generally had?: No pain . During the past 4 weeks, was someone available to help you if you needed and wanted help?: Yes, as much as I wanted . During the past 4 weeks, wha t was the hardest physical activity you could do for at least 2 minutes?: Moderate . Can you get places out of walking distan ce without help?: Yes . Can you shop for groceries or clothes wi thout help?: Yes . Can you prepare your own meals?: Yes . Can you do your own housework without he lp?: Yes . Can you handle your own money without he lp?: Yes . Do you need help eating, bathing, dressi ng or getting around your home?: No . During the past 4 weeks, how would you r ate your health in general?: Very good . How have things been going f or you during the past 4 weeks?: Very well, could hardly be better . Are you having difficulties driving your car?: No . Do you always fasten your seat belt when you are in a car?: Yes, sometimes . How often during the past 4 weeks have you been bothered by a fall or feeling dizzy when standing up?: Never . How often during the past 4 weeks have you been bothered by sexual problems?: Never . How often during the past 4 weeks have you been bothered by trouble eating well?: Never . How often during the past 4 weeks have you been bothered by teeth or dentures?: Never . How often during the past 4 weeks have you been bothered by problems using the telephone?: Never . How often during the past 4 weeks have you been bothered by feeling tired or fatigued?: Never . Have you fallen 2 or more times in the p ast year?: No . Are you afraid of falling?: No . Are you a smoker?: No . During the past 4 weeks, how many drinks of wine, beer or other alcoholic beverages did you have?: No alcohol at all . Did you exercise for about 2 0 minutes 3 or more days a week?: No, I usually don't exercise this much . Have you been given any info rmation to help you with hazards in your house that might hurt you?: Yes . Have you been given any info rmation to help you with keeping track of your medications?: Yes . How often do you have troubl e taking medicines the way you have been told to take them?: I always take them as prescribed . How confident are you that y ou can control and manage most of your health problems?: Very confident . Depression Screening PHQ-2 (2015 Edition) Little interest or pleasure in doing things?: Not at all Feeling down, depressed, or hopeless?: N ot at all Total Score: 0 Examination Category Sub-Category Detail Notes Category Not es General Examination GENERAL APPEARANCE: pleasant, in n o acute distress EYES: pupils equal, round, reactive to light, extraoccular motions intact. EARS: TMs lucent bilateral ly with normal landmarks. No cerumen. NECK/THYROID: no submandibular or anterior cervical adenopathy HEART: Regular rate and rhy thm without murmur LUNGS: clear in all syed NEUROLOGIC: alert and oriented, normal gait SKIN: No concerning nevi. Multiple SKs on the back. No visible rash or lesions of the lips EXTREMITIES: pink, warm, without edema PERIPHERAL PULSES: strong PT bilaterall y MUSCULOSKELETAL: moves with ease to e xam table ORAL CAVITY: Lotsee, moist without lesions
[2024-09-21 06:45] VITALS: BP 163/67; PULSE 72; RESP 18; TEMP 36.1; O2SAT 100
[2024-09-21] MEDS: Tropicam./Phenyleph. (1/2.5%) 5 ML BTL OD ×3 (06:53→07:06)
--- NOTE | 2024-09-21 07:35 | ANES.PREOP_ITS ---
General Info Date of Service Date Performed: 09/21/24 Height: 5 ft 2 in Weight: 86.8 kg Body Mass Index (BMI): 34.9 Surgical Procedure: Operation Date: 09/21/24 08:40 Proposed Procedure Side Surgeon p Cataract Extraction with IOL Implant Right Willie Burks MD Meds Allergies and Home Medications Allergies Allergy/AdvReac Type Severity Reaction Status Date / Time niacin Allergy Other (See Verified 09/21/24 06:51 Comment) suture Allergy Other (See Verified 09/21/24 06:51 Comment) Home Medication ?Medication ?Instructions ?Recorded Manan Low Dose Aspirin 81 mg 81 mg PO DAILY 04/18/17 tablet,delayed release (aspirin) Nitrostat 0.4 mg sublingual tablet 0.4 mg sublingual DIRECTED 04/18/17 (nitroglycerin) Tylenol Extra Strength 500 mg 1,000 mg PO Q6H PRN 04/18/17 tablet (acetaminophen) hydrochlorothiazide 12.5 mg capsule 12.5 mg PO DAILY 04/18/17 levothyroxine 88 mcg tablet 88 mcg PO DAILY 04/18/17 lisinopril 40 mg tablet 40 mg PO DAILY 04/18/17 atorvastatin 80 mg tablet 80 mg PO DAILY 09/11/24 cholecalciferol (vitamin D3) 25 1,000 unit PO DAILY 09/11/24 mcg (1,000 unit) tablet (Vitamin D3) multivitamin 1 tab PO DAILY 09/11/24 Current Visit Medications: Current Medications Generic Name Dose Route Start Last Admin Trade Name Freq PRN Reason Stop Dose Admin Acetaminophen 1,000 mg 09/21/24 06:00 Acetaminophen 500 Mg Tab PO 10/21/24 05:59 Q4H PRN PRN Balanced Salt Solution 500 ml 09/21/24 06:00 Balanced Salt Soln.-Plus 500 Ml Bag OP 10/21/24 05:59 DIRECTED FOR[facility], LAT[facility] Miscellaneous Medication 0 ml 09/21/24 06:00 Prednisolone 1%, Moxifloxacin 0.5%, Bromfenac 0.09% 5.6ml Btl OD 10/21/24 05:59 DIRECTED [facility], LAT[facility] Miscellaneous Medication 0 ml 09/21/24 06:00 09/21/24 07:06 Tropicam./Phenyleph. (1/2.5%) 5 Ml Btl OD 10/21/24 05:59 1 drp DIRECTED EVELYN Administration Tetracaine HCl 0 ml 09/21/24 06:00 Tetracaine 0.5% 4 Ml Btl OD 10/21/24 05:59 DIRECTED EVELYN PFSH Active Problems Active Problems: Problem Status Onset Code Cortical age-related cataract, right eye Acute H25.011 Nuclear age-related cataract, right eye Acute H25.11 Posterior subcapsular age-related cataract of left eye Resolved H25.042 Nuclear age-related cataract, left eye Resolved H25.12 Medical History Medical History Osteopenia Spondyloschisis Hypertension Hypothyroidism Hypercholesterolemia Elevated LFTs Tubulovillous adenoma Papillary carcinoma Persistent headaches Surgical History Surgical History Fibroid, uterine uterine fibroidectomy History of bilateral tubal ligation S/P YONY (total abdominal hysterectomy) History of laminectomy L4-5, L5-S1 and medial facetectomies 2013 History of bunionectomy right foot History of biopsy tongue-hyperplasia, Labia- atypical nevus, History of colonoscopy History of endoscopy H/O thyroidectomy Excision, Lipoma Tobacco Smoking/Tobacco Use Status: Former Tobacco Use Alcohol Alcohol Intake: never Substance Use Substance use: Never Substance use type: does not use Vital Signs and Lab Results Vital Signs Most Recent Vital Signs in EMR: Most Recent Vital Signs Temp Pulse Resp BP Pulse Ox 36.1 C L 72 18 163/67 H 100 09/21/24 06:45 09/21/24 06:45 09/21/24 06:45 09/21/24 06:45 09/21/24 06:45 Lab Results Blood Type / Crossmatch: No Data to Display Complete Blood Count: No Data to Display Complete Metabolic Panel: No Data to Display Liver Function Panel: No Data to Display Coagulation Panel: No Data to Display Cardiac Panel: No Data to Display Arterial Blood Gas: No Data to Display Venous Blood Gas: No Data to Display Pancreas Panel: No Data to Display Thyroid Panel: No Data to Display Infectious Disease: No Data to Display Blood Cultures: No Data to Display Toxicology Panel: No Data to Display Anesthesia Assessment and Plan Anesthesia History Personal History: No History of Anesthesia Complications Family History: No Family History of Anesthesia Complications Exercise Tolerance Exercise Tolerance: Metabolic Equivalents>4 Pertinent Negatives Pertinent Negatives: No Major Cardiovascular Symptoms or Complaints and No Major Pulmonary Symptoms or Complaints Cardiac & Pulmonary Exam Cardiac Exam: Normal S1/S2 Heart Sounds Pulmonary Exam: Clear Bilateral Breath Sounds Implantable Cardiac Device Does patient have a Pacemaker or an ICD?: No Airway Exam Known Difficult Airway: No Mallampati Class: 2 Mouth Opening: Normal (> 3cm) Thyromental Distance: Greater than 3 cm Neck Range of Motion: Full ROM Neck Circumference: Normal Teeth Condition: Normal Dentition ASA Classification ASA Score: ASA 2 Emergency Case?: No NPO Status NPO Status: NPO Clears >2 hours, Solids >8 hours Anesthesia Plan Resuscitation Status: Full Code Anesthesia Technique: General Anesthesia Airway Planned: Natural Airway Monitors Used: Standard Monitors
[2024-09-21 08:05] VITALS: BMI 34.9
[2024-09-21] MEDS: Duovisc Viscoelastic System EACH 1 EACH (08:17)
[2024-09-21] MEDS: Lidocaine 1% Pres-Free 5 ML VIAL (08:18)
[2024-09-21] MEDS: Phenylephrine/Lidocaine (15/10) MG/ML 1 ML VIAL (08:19)
[2024-09-21] MEDS: Balanced Salt Soln.-PLUS 500 ML BAG OP (08:20)
[2024-09-21] MEDS: Povidone-Iodine Ophth 30 ML BTL (08:20)
[2024-09-21] MEDS: Tetracaine 0.5% 4 ML BTL OD (08:21)
[2024-09-21] MEDS: Prednisolone 1%, Moxifloxacin 0.5%, Bromfenac 0.09% 5.6ML BTL OD (08:21)
[2024-09-21 08:35] VITALS: BP 160/77; PULSE 61; RESP 18; TEMP 36.7; O2SAT 98
--- NOTE | 2024-09-21 08:39 | W.PM.DSUDISC ---
Date of service: 09/21/24 Discharge Plan Disposition Patient Disposition: Home Discharge Details Attending Provider: Willie Burks Primary Care Provider: Leigh Stern Home Meds and New Rx's Prescriptions: No Action aspirin [Manan Low Dose Aspirin] 81 MG tablet,delayed release (DR/EC) 81 mg PO DAILY acetaminophen [Tylenol Extra Strength] 500 MG tablet 1,000 mg PO Q6H PRN levothyroxine 88 MCG tablet 88 mcg PO DAILY hydrochlorothiazide 12.5 MG capsule 12.5 mg PO DAILY nitroglycerin [Nitrostat] 0.4 MG tablet, sublingual 0.4 mg Sublingual DIRECTED lisinopril 40 MG tablet 40 mg PO DAILY atorvastatin 80 mg tablet 80 mg PO DAILY cholecalciferol (vitamin D3) [Vitamin D3] 25 mcg (1,000 unit) tablet 1,000 unit PO DAILY multivitamin Tablet 1 tab PO DAILY Discharge Instructions Stand Alone Forms: DSU Post-Op Cataract, Giuliano Gonzalez (DSU) Discharge Orders Discharge Orders: Discharge Order (Routine); Ordered 09/21/24 Ordered By: Willie Burks DS: Diagnosis Discharge Diagnosis (1) Cortical age-related cataract, right eye: Status: Resolved (2) Nuclear age-related cataract, right eye: Status: Suspected
--- NOTE | 2024-09-21 08:40 | ROE_ITS ---
Operative Note Operative Note PRE-OP DIAGNOSIS: Nuclear/cortical cataract, right eye POST-OP DIAGNOSIS: same PROCEDURE: Cataract extraction using phacoemulsification with intraocular lens implant, right eye SURGEON: Willie Burks ANESTHESIA TYPE: Local By Surgeon and MAC Refer to Anesthesia Record ESTIMATED BLOOD LOSS: 0 PATHOLOGY: none sent COMPLICATIONS: None Patient was transported to: same day Patient's condition: stable Implants: Norberto Clareon [id number] Indications: Progressive decreased vision due to cataract, right eye Procedure Description: CATARACT SURGERY OPERATIVE REPORT PREOPERATIVE DIAGNOSIS: Nuclear/cortical cataract, right eye POSTOPERATIVE DIAGNOSIS: Same OPERATION: Cataract extraction using phacoemulsification with posterior chamber intraocular lens implant, right eye. IOL: IOL Cnc Service Technician/Model: Norberto Clareon [id number] IOL Power: + 17.0 diopters IOL Serial Number: [id number] Optic Diameter: 6.0mm Haptic/Overall Diameter: 13.0mm PHACO INFO: Norberto Centurion Vision System with OZil and Active Fluidics Cumulative Dispersed Energy (CDE): 5.20 seconds SURGEON: Willie Burks MD, MALICK ANESTHESIA: Monitored Anesthesia Care (MAC), with local sub-tenon's anesthetic infiltration COMPLICATIONS: None SPECIMENS: None INDICATIONS FOR PROCEDURE: The patient is a 79-year-old lady with history of diminished visual acuity in both eyes secondary to the development of bilateral nuclear/cortical cataract. She is significantly symptomatic that she desires cataract surgery in attempt to improve and maximize her vision. She has already undergone cataract surgery in the left eye and is doing well postoperatively. She now presents for cataract surgery in the right eye. See office notes for detailed information. PROCEDURE: The correct surgical eye was identified and marked as the right eye and the pupil was dilated in the preoperative area using mydriatics and cycloplegics. The dilated pupil size was 6.0 mm. The patient elected to proceed without oral sedation. The patient was brought to the operating room where cardiopulmonary monitoring was instituted and surgical time-out was performed, confirming the correct operative eye and IOL power. Topical anesthesia was administered and ophthalmic povidone-iodine 5% was instilled into the conjunctival fornices. The carolyn-ocular area was prepped with Betadine 10% solution and draped in the usual sterile fashion for intraocular surgery, including an aperture drape. A Tegaderm transparent film dressing was cut in half and used to cover the lashes and lid margins. Care was taken to sequester the lashes and lid margins under the Tegaderm dressing. A lid speculum was placed between the lids of the operative eye and the Norberto LuxOR Revalia operating microscope was maneuvered into position. Jamilah scissors were then used to make a conjunctival buttonhole approximately 6mm posterior to the limbus in the inferonasal quadrant. Blunt dissection was carried out to expose bare sclera, and a blunt-tipped sub-tenon?s anesthesia cannula was introduced and passed posteriorly along the globe where non- preserved plain lidocaine was injected into posterior sub-Tenon?s space. A sideport knife was used to make a paracentesis port. Intraocular phenylephrine/lidocaine was injected into the anterior chamber. The anterior chamber was then filled with viscoelastic. A keratome knife was used to construct a two--plane clear corneal tunnel extending 2.0mm into clear cornea. A flap was raised on the anterior capsule and capsulorhexis forceps were used to complete a continuous curvilinear capsulorhexis of 5.0 mm. Balanced salt solution was then used to perform cortical cleaving hydrodissection and nuclear hydrodelineation until the lens could be freely rotated within the capsular bag. The lens nucleus was then disassembled and removed within the capsular bag and iris plane using phacoemulsification. Residual cortical material was removed using the I/A handpiece. The posterior capsule was carefully polished to remove as much residual lens epithelial cells as safely possible. The capsular bag was then inflated and the anterior chamber deepened with cohesive viscoelastic. The lens implant described above was inserted into the capsular bag using the Norberto Autonome Injector. A Kuglen hook was used to dial the IOL into position. Residual viscoelastic was then removed first from posterior to the IOL, then from the anterior chamber using the I/A handpiece. The lens implant was noted to center nicely within the capsular bag. The incisions were stromally hydrated, and the anterior chamber was reformed using BSS. Then 0.5cc of moxifloxacin 1.0mg/ml were injected into the capsular bag and anterior chamber. The incisions were checked with a Weck spear and found to be secure. Several drops of ophthalmic povidone-iodine 5% were then applied to the eye followed by two drops of combination steroid/NSAID/antibiotic solution. The drapes were removed and a clear plastic protective eye shield was placed over the eye. The patient was then returned to Same Day Surgery in stable condition. Date of Procedure: 09/21/24
--- NOTE | 2024-09-21 08:59 | W.ANESPOSTOP ---
Postoperative Evaluation Date, Time and Location Date Performed: 09/21/24 Time Performed: 08:43 Patient Location: Day Surgery Unit Vital Signs Most Recent Imported Vital Signs: Most Recent Vital Signs Temp Pulse Resp BP Pulse Ox 36.7 C 61 18 160/77 H 98 09/21/24 08:35 09/21/24 08:35 09/21/24 08:35 09/21/24 08:35 09/21/24 08:35 Pain Score Most Recent Pain Score: Most Recent Pain Score Pain Level 0 09/21/24 08:35 Assessment Mental Status: Awake (Alert & Oriented to Patient Baseline) Airway and Respiratory Function: Patent airway with normal (patient baseline) respiratory exam Cardiovascular Function: Hemodynamically Stable Hydration Status: Adequately Hydrated Nausea & Vomiting: No Nausea or Vomiting Pain: Pt. Denies Any Pain Peripheral Nerve Block: Patient did not receive a nerve block
== END 2024-09-21 08:50 | disposition home or self-care (01) ==
LOC: SUR 06:37
PROVIDERS: PCP Nurse Practitioner; Visit Provider Ophthalmology
PROC: (CPT 66984; principal; 2024-09-21 08:30)
DX: H25.011 Cortical age-related cataract, right eye (principal); H25.11 Age-related nuclear cataract, right eye; Z98.42 Cataract extraction status, left eye
CPT/HCPCS: 66984; 00123; V2632; J2003